=== PATIENT | female | born 1955 | race Caucasian/White ===

== ENCOUNTER → 2018-01-18 | Outpatient (CLI) | payer OTHER ==
[2018-01-18 13:38] LABS: ALBUMIN 3.6 gm/dl (3.4-5.0); ALKALINE PHOSPHATASE 115 U/L (45-117); ALT/SGPT 18 U/L (12-78); AST/SGOT 15 U/L (15-37); BLOOD UREA NITROGEN 14 mg/dl (7-18); CALCIUM 9.1 mg/dl (8.5-10.1); CARBON DIOXIDE 26 mmol/L (21-32); CHOLESTEROL 214 mg/dl (0-200); GLUCOSE 87 mg/dl (70-99); LDL CHOLESTEROL CALCULATED 122 mg/dl; POTASSIUM 4.1 mmol/L (3.5-5.1); SODIUM 139 mmol/L (136-145); TOTAL PROTEIN 7.4 gm/dl (6.4-8.2)
== END | disposition home or self-care (01) ==
LOC: C.LABPBG 07:58
PROVIDERS: ATTEND Physician Assistant Medical
DX: Z00.00 Encounter for general adult medical examination without abnormal findings (principal)

== ENCOUNTER 2021-02-01 22:14 | Inpatient (IN) ==
[2021-02-01] MEDS ORDERED: SODIUM CHLORIDE 0.9% 1000ML 1,000 ML IV SCH (23:45)
[2021-02-01] MEDS ORDERED: MoRPHine SULFATE 4 MG/ML 1 ML CARP\\VIAL IV PRN (23:46)
[2021-02-01] MEDS ORDERED: KETOROLAC 30 MG/ML VIAL IV STA (23:46)
[2021-02-01] MEDS ORDERED: ONDANSETRON INJ 2 MG/ML 2 ML VIAL IV STA (23:46)
[2021-02-02 00:56] LABS: Alanine Aminotransferase 20 U/L (12-78); Albumin Level 4.1 gm/dl (3.4-5.0); Aspartate Aminotransferase 18 U/L (15-37); BUN Creatinine Ratio 8.5 (10-20); Blood Urea Nitrogen 11 mg/dl (7-18); Calcium 9.3 mg/dl (8.5-10.1); Carbon Dioxide 25 mmol/L (21-32); Chloride 106 mmol/L (98-107); Creatinine Clr Calc Pharmacy 46.1 ml/min; Est GFR (African American) 49.6 ml/min; Est GFR (Non-African American) 42.8 ml/min; Glucose 129 mg/dl (70-99); Lipase 78 U/L (73-393); Magnesium 2.2 mg/dl (1.8-2.4); Potassium 4.1 mmol/L (3.5-5.1); Sodium 135 mmol/L (136-145)
[2021-02-02 01:01] LABS: Alkaline Phosphatase 108 U/L (45-117); Bilirubin,Total 0.5 mg/dl (0.2-1); Globulin 4.1 gm/dl (2.5-4.0); Total Protein 8.2 gm/dl (6.4-8.2); Troponin I < 0.015 ng/ml (0-0.045)
[2021-02-02 01:02] LABS: Basophils # (auto) 0.02 K/uL (0-0.2); Basophils % (auto) 0.1 %; Eosinophils # (auto) 0.01 K/uL (0-0.5); Eosinophils % (auto) 0.1 %; Hematocrit (blood only) 40.5 % (37-47); Hemoglobin 13.1 g/dL (12.0-16.0); Immature Granulocytes # (auto) 0.01 K/uL (0.00-0.02); Immature Granulocytes % (auto) 0.1 %; Lymphocytes # (auto) 1.64 K/uL (1.2-3.4); Lymphocytes % (auto) 11.8 %; Mean Corpuscular Hgb Conc 32.3 g/dL (32-36); Mean Corpuscular Volume 89.8 fL (80-100); Mean Platelet Volume 9.7 fL (7.4-10.4); Monocytes # (auto) 0.62 K/uL (0.11-0.59); Monocytes % (auto) 4.5 %; Neutrophils # (auto) 11.63 K/uL (1.4-6.5); Neutrophils % (auto) 83.4 %; Platelet Count 369 K/uL (130-400); RDW Coefficient of Variation 13.7 % (11.5-14.5); RDW Standard Deviation 45.3 fL (36.4-46.3); Red Blood Count 4.51 M/uL (4.2-5.4); White Blood Count 13.93 K/uL (4.8-10.8)
[2021-02-02] MEDS ORDERED: cefTRIAXone SODIUM 2,000 MG/70 ML BAG IV STA (02:27)
--- NOTE | 2021-02-02 02:44 | Emergency Department Note ---
History of Present Illness General Chief complaint: Flank Pain Stated complaint: PAIN ON L SIDE THINKS SHES PASSING KIDNEY STONE Time Seen by Provider: 02/01/21 23:37 History of Present Illness Maximum Pain Intensity: 5 This is a 65-year-old female presenting to the emergency department for evaluation of left-sided abdominal pain radiating into her left lower abdomen for the past 1 day. The patient states the symptoms began roughly 24 hours ago and initially were a 5/10 that ultimately improved by itself. The patient was able to go to work today, but the symptoms returned this evening. They are much more constant and at worst is rated an 8/10. The patient is nauseated without vomiting. No fevers or chills. No chest pain, chest tightness, shortness of breath. Home Medications Medication Instructions Recorded Confirmed Type albuterol sulfate 90 mcg/actuation 2 puff INHALATION Q4H PRN 05/03/20 02/02/21 History aerosol inhaler ibuprofen 200 mg tablet (Advil) 600 mg PO Q6H PRN 05/03/20 02/02/21 History losartan 25 mg tablet 25 mg PO QAM 05/03/20 02/02/21 History Allergies Allergy/AdvReac Type Severity Reaction Status Date / Time naproxen Allergy Intermediate Hives Verified 02/02/21 00:23 Past Med/Surg History Medical History No chronic diseases present Surgical History No significant past surgical history Social History Smoking Status: Never smoker Hx Alcohol Use: No Hx Substance Use: No Preferred Language: Austrian Communication Ability: Effective 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 Beliefs That Will Affect Care: None Current Living Situation: Alone Feels Safe at Home: Yes Safety Concerns: Feels Safe At This Time Assistive Devices: None Review of Systems A total of 10 systems reviewed and were otherwise negative Physical Exam Vital Signs Vital Signs - 24 hr 02/01/21 22:24 02/02/21 00:21 02/02/21 02:05 Temperature 36.4 C L Temperature Source Temporal Artery Scan Pulse Rate 63 74 Pulse Rate [Apical] 72 78 Pulse Rhythm [Apical] Regular Regular Pulse Strength [Apical] Normal Normal Respiratory Rate 22 18 18 Respiratory Effort / Characteristics Non-Labored Spontaneous Non-Labored Spontaneous Respiratory Depth Shallow Normal Normal Blood Pressure 170/91 H Blood Pressure [Left Arm] 153/76 H 128/64 Blood Pressure Mean 117 Blood Pressure Mean [Left Arm] 101 85 Blood Pressure Position [Left Arm] Lying Lying Pulse Oximetry 100 94 Oxygen Delivery Method Room Air Room Air Room Air Sepsis Recent Fever Within 48 Hours No Sepsis New/Unexplained Change in Mental Status No Sepsis Action Taken by Nursing No Action Required VITALS: Vitals are noted on the nurse's note and reviewed by myself. Vital signs stable. GENERAL: Well-developed, well-nourished, white female who appears moderately uncomfortable. She is with dry heaving on examination. NECK: Supple without nuchal rigidity. No lymphadenopathy. No thyromegaly. Cervical spine is nontender. HEART: Regular rate and rhythm without murmurs gallops or rubs. LUNGS: Clear to auscultation bilaterally without wheezes, rales or rhonchi. No retractions or accessory muscle use. ABDOMEN: Positive normal bowel sounds x 4. Soft, nontender, without masses or organomegaly. No guarding or rebound tenderness. MUSCULOSKELETAL: No muscle atrophy, erythema, or edema noted. Full range of m otion in all extremities. NEURO: Patient was alert and oriented to person place and time. CN II through XII grossly intact. Course Administered Medications Discontinued Medications Sodium Chloride (Nss 1000ml) 1,000 mls @ 999 mls/hr IV .Q1H1M ORIANA Stop: 02/02/21 00:45 Last Infusion: 02/02/21 01:24 Dose: 0 mls/hr Documented by: [id number] Admin: 02/02/21 00:14 Dose: 999 mls/hr Documented by: [id number] Ceftriaxone Sodium (Rocephin) 2,000 mg in 70 mls @ 140 mls/hr IV NOW STA Stop: 02/02/21 02:56 Last Infusion: 02/02/21 03:18 Dose: 0 mls/hr Documented by: [id number] Admin: 02/02/21 02:36 Dose: 140 mls/hr Documented by: [id number] Ketorolac Tromethamine (Ketorolac 30 Mg/Ml Vial) 30 mg IV NOW STA Stop: 02/01/21 23:47 Last Admin: 02/02/21 00:01 Dose: 30 mg Documented by: [id number] Morphine Sulfate (Morphine Sulfate 4 Mg/Ml 1 Ml Carp\Vial) 4 mg IV Q15M PRN PRN Reason: Pain Stop: 02/15/21 23:45 Last Admin: 02/02/21 02:36 Dose: 4 mg Documented by: [id number] Ondansetron HCl (Ondansetron Inj 2 Mg/Ml 2 Ml Vial) 4 mg IV NOW STA Stop: 02/01/21 23:47 Last Admin: 02/02/21 00:01 Dose: 4 mg Documented by: [id number] Medical Decision Making Differential Diagnosis Differential diagnosis: Etiologies such as shingles, pyelonephritis/UTI, renal colic, appendicitis, diverticulitis, mesenteric ischemia, torsion, aortic pathology, infections, inflammatory bowel disease, bowel obstruction, PUD, biliary pathology, as well as others were entertained. Laboratory Data Result diagrams: 02/01/21 23:52 02/01/21 23:52 Lab Results 02/01/21 02/01/21 02/02/21 Range/Units 23:52 23:52 02:30 WBC 13.93 H (4.8-10.8) K/uL RBC 4.51 (4.2-5.4) M/uL Hgb 13.1 (12.0-16.0) g/dL Hct 40.5 (37-47) % MCV 89.8 (80-100) fL MCH 29.0 (25-34) pg MCHC 32.3 (32-36) g/dL RDW Std Deviation 45.3 (36.4-46.3) fL RDW Coeff of Dalila 13.7 (11.5-14.5) % Plt Count 369 (130-400) K/uL MPV 9.7 (7.4-10.4) fL Immature Gran % (Auto) 0.1 % Neut % (Auto) 83.4 % Lymph % (Auto) 11.8 % Barrow % (Auto) 4.5 % Eos % (Auto) 0.1 % Baso % (Auto) 0.1 % Neut # (Auto) 11.63 H (1.4-6.5) K/uL Lymph # (Auto) 1.64 (1.2-3.4) K/uL Barrow # (Auto) 0.62 H (0.11-0.59) K/uL Eos # (Auto) 0.01 (0-0.5) K/uL Baso # (Auto) 0.02 (0-0.2) K/uL Immature Gran # (Auto) 0.01 (0.00-0.02) K/uL Sodium 135 L (136-145) mmol/L Potassium 4.1 (3.5-5.1) mmol/L Chloride 106 (98-107) mmol/L Carbon Dioxide 25 (21-32) mmol/L Anion Gap 4.0 (3-11) BUN 11 (7-18) mg/dl Creatinine 1.32 H (0.6-1.2) mg/dl Est Cr Clr Drug Dosing 46.1 ml/min Est GFR ( Amer) 49.6 ml/min Est GFR (Non-Af Amer) 42.8 ml/min BUN/Creatinine Ratio 8.5 L (10-20) Glucose 129 H (70-99) mg/dl Calcium 9.3 (8.5-10.1) mg/dl Magnesium 2.2 (1.8-2.4) mg/dl Total Bilirubin 0.5 (0.2-1) mg/dl AST 18 (15-37) U/L ALT 20 (12-78) U/L Alkaline Phosphatase 108 (45-117) U/L Troponin I < 0.015 (0-0.045) ng/ml Total Protein 8.2 (6.4-8.2) gm/dl Albumin 4.1 (3.4-5.0) gm/dl Globulin 4.1 H (2.5-4.0) gm/dl Albumin/Globulin Ratio 1.0 (0.9-2) Lipase 78 (73-393) U/L Urine Color Yellow Urine Appearance Clear (Clear) Urine pH 5.5 (4.5-7.5) Ur Specific Barnhart 1.019 (1.000-1.030) Urine Protein Negative (Negative) Urine Glucose (UA) Negative (Negative) Urine Ketones 1+ H (Negative) Urine Blood 3+ H (Negative) Urine Nitrite Negative (Negative) Urine Bilirubin Negative (Negative) Urine Urobilinogen Negative (Negative) Ur Leukocyte Esterase 2+ H (Negative) Urine WBC (Auto) 10-30 H (0-5) /hpf Urine RBC (Auto) >30 H (0-4) /hpf U Hyaline Cast (Auto) 1-5 (0-5) /lpf U Epithel Cells (Auto) >30 H (0-5) /lpf Urine Bacteria (Auto) Negative (Negative) COVID-19 Eval Order SARS-CoV-2 (PCR) (Negative) 02/02/21 02/02/21 Range/Units 02:41 02:41 WBC (4.8-10.8) K/uL RBC (4.2-5.4) M/uL Hgb (12.0-16.0) g/dL Hct (37-47) % MCV (80-100) fL MCH (25-34) pg MCHC (32-36) g/dL RDW Std Deviation (36.4-46.3) fL RDW Coeff of Dalila (11.5-14.5) % Plt Count (130-400) K/uL MPV (7.4-10.4) fL Immature Gran % (Auto) % Neut % (Auto) % Lymph % (Auto) % Barrow % (Auto) % Eos % (Auto) % Baso % (Auto) % Neut # (Auto) (1.4-6.5) K/uL Lymph # (Auto) (1.2-3.4) K/uL Barrow # (Auto) (0.11-0.59) K/uL Eos # (Auto) (0-0.5) K/uL Baso # (Auto) (0-0.2) K/uL Immature Gran # (Auto) (0.00-0.02) K/uL Sodium (136-145) mmol/L Potassium (3.5-5.1) mmol/L Chloride (98-107) mmol/L Carbon Dioxide (21-32) mmol/L Anion Gap (3-11) BUN (7-18) mg/dl Creatinine (0.6-1.2) mg/dl Est Cr Clr Drug Dosing ml/min Est GFR ( Amer) ml/min Est GFR (Non-Af Amer) ml/min BUN/Creatinine Ratio (10-20) Glucose (70-99) mg/dl Calcium (8.5-10.1) mg/dl Magnesium (1.8-2.4) mg/dl Total Bilirubin (0.2-1) mg/dl AST (15-37) U/L ALT (12-78) U/L Alkaline Phosphatase (45-117) U/L Troponin I (0-0.045) ng/ml Total Protein (6.4-8.2) gm/dl Albumin (3.4-5.0) gm/dl Globulin (2.5-4.0) gm/dl Albumin/Globulin Ratio (0.9-2) Lipase (73-393) U/L Urine Color Urine Appearance (Clear) Urine pH (4.5-7.5) Ur Specific Barnhart (1.000-1.030) Urine Protein (Negative) Urine Glucose (UA) (Negative) Urine Ketones (Negative) Urine Blood (Negative) Urine Nitrite (Negative) Urine Bilirubin (Negative) Urine Urobilinogen (Negative) Ur Leukocyte Esterase (Negative) Urine WBC (Auto) (0-5) /hpf Urine RBC (Auto) (0-4) /hpf U Hyaline Cast (Auto) (0-5) /lpf U Epithel Cells (Auto) (0-5) /lpf Urine Bacteria (Auto) (Negative) COVID-19 Eval Order Covid19 at [facility] SARS-CoV-2 (PCR) NEGATIVE (Negative) Imaging Data Radiologist's Impression: Preliminary Findings Only See Final Report For Complete Findings CT ABDOMEN & PELVIS Without Contrast: There is an obstructing 5-6 mm stone within the left UPJ resulting in mild left hydronephrosis. There is associated moderate pararenal fat stranding. Additional nonobstructing left renal calculi. No right nephrolithiasis or hydronephrosis. Small hiatal hernia. Mild atelectasis in the lung bases. Unremarkable liver, gallbladder, spleen, and pancreas. Mild diverticulosis of the sigmoid colon without evidence of acute diverticuliti s. Unremarkable appendix. Radiologist: Tana Freeman M.D. ECG Data Attestation: I personally reviewed and interpreted this ECG as follows: Additional Comments: Normal sinus rhythm @[address] elevation Nonspecific T wave abnormality Abnormal ECG No previous ECGs available MDM Narrative Physical exam and history were performed. Nursing notes, EMR, and Medication List were personally reviewed. Patient appears to have left-sided pain bringing her to the emergency department. The patient is quite nauseated on presentation and appears uncomfortable. IV access was established and labs were obtained. She was hydra smiley with normal saline and given IV morphine, IV Toradol, and IV Zofran for comfort. The patient was sent to CT scan for further evaluation of her symptoms. An order was placed for continuous cardiac monitoring. The monitor shows a rate of 64 with normal sinus rhythm. The patient's blood work is as above and was reviewed. She does have an elevated white blood cell count of almost 14,000. She does not have a significant anemia or gross electrolyte imbalance. Creatinine is 1.32. Glucose is 129. Troponin x1 is negative. Lipase and transaminases are not diagnostic. Urine is with blood, esterase, and white blood cells. COVID-[address] scan was reviewed by myself and radiology and does show a 5 to 6 mm proximal obstructing stone with hydronephritis and stranding. Out of concern for infection the patient was given IV Rocephin. Overall the patient does not appear well for discharge home. She seems to have an obstructing stone and concerning findings for infection. The patient does feel improved after hydration and medication here in the ER. The case was discussed with the on-call hospitalist team for further evaluation. Please see their dictation for further patient course, plan, and disposition. The chart was completed utilizing [employer] Speech Voice Recognition Software. Grammatical errors, random word insertions, pronoun errors, and incomplete sente nces are an occasional consequence of this system due to software limitations, ambient noise, and hardware issues. Any formal questions or concerns about the content, text, or information contained within the body of this dictation should be directly addressed to the provider for clarification. . Impression & Plan Left ureteral calculus, Hydronephrosis with renal calculous obstruction Discharge Plan Visit Data Chief Complaint: Flank Pain Stated Complaint: PAIN ON L SIDE THINKS SHES PASSING KIDNEY STONE ED Provider: Paul Armijo ED Midlevel Provider: Matthew Carpenter Discharge Problem: Left ureteral calculus, Hydronephrosis with renal calculous obstruction Patient Disposition: Admitted As Inpatient Discharge Instructions Interventions: ED Discharge Assessment Last Done: 02/02/21 04:42
[2021-02-02 02:54] LABS: Appearance Urine Clear (Clear); Bacteria Urine Automated Negative (Negative); Bilirubin Urine Negative (Negative); Blood Urine 3+ (Negative); Color Urine Yellow; Epithelial Cell Urine Auto >30 /lpf (0-5); Glucose Urine UA Negative (Negative); Ketones Urine 1+ (Negative); Leukocyte Esterase Urine 2+ (Negative); Nitrite Urine Negative (Negative); Protein Urine Negative (Negative); RBC Urine Automated >30 /hpf (0-4); Specific Gravity Urine 1.019 (1.000-1.030); Urobilinogen Urine Negative (Negative); pH Urine 5.5 (4.5-7.5)
--- NOTE | 2021-02-02 04:37 | History and Physical Report ---
DATE OF ADMISSION: 02/01/2021. CHIEF COMPLAINT: Left flank pain. HISTORY OF PRESENT ILLNESS: A 65-year-old female with past medical history significant for intermittent asthma, allergic rhinitis, venous insufficiency, hypertension, adjustment disorder with anxious mood, comes with left flank pain. The patient states she had left flank pain the other day at night for a couple of hours. It resolved and she went to work when she came back home in the evening, again around 11:00 p.m., she had severe pain in the left flank region with nausea, vomiting, which prompted her to come to the ER. Denies any hematuria and denies any fever or chills. No burning micturition. She also has some lower abdominal discomfort. When she came, the pain was 10/10 in severity, currently after pain medication pain is about 3/10 in severity. Denies any chest pain, no shortness of breath, no cough, no fever, no headache, no blurred vision, no earache, no runny nose, no sore throat, no swelling in the legs, no rash. Currently, resting comfortably and hemodynamically stable. ALLERGIES: LISINOPRIL, DYAZIDE, NAPROXEN. PAST MEDICAL HISTORY: As mentioned above. PAST SURGICAL HISTORY: Tonsillectomy and adenoidectomy. MEDICATIONS: The patient is on albuterol 2 puffs inhalation q. 4 hours p.r.n., losartan 25 mg p.o. a.m., and Advil p.r.n. FAMILY HISTORY: Significant for father has hypertension; mother has hypertension; brother has lymphoma. SOCIAL HISTORY: Lives alone. No smoking. Alcohol 4 drinks per month. No drug use. REVIEW OF SYSTEMS: As per HPI. Rest of the review of systems negative. PHYSICAL EXAMINATION: GENERAL: The patient is of moderate build, not in acute distress. VITAL SIGNS: Temperature 36.4, pulse 78, respiratory rate 18, blood pressure 128/64, oxygen 94% on room air. HEENT: Pupils equal, round and reactive to light. Oral mucosa moist. NECK: No JVD. No neck masses. CARDIOVASCULAR: S1 and S2 heard. Regular rate and rhythm. No murmur, no gallop. RESPIRATORY SYSTEM: Normal AP diameter. No accessory muscle use. No wheezing, no crackles. ABDOMEN: Soft, bowel sounds present. Left CVA tenderness present. No guarding, no rigidity, no distention. CENTRAL NERVOUS SYSTEM: Cranial nerves II-XII grossly intact, nonfocal. EXTREMITIES: No edema, no erythema. LABORATORY DATA: WBC 13.9, hemoglobin 13.1, hematocrit 40.5, platelets 369. Sodium 135, potassium 4.1, chloride 106, bicarbonate 25, BUN 11, creatinine 1.31, serum glucose 129, calcium 9.3, magnesium 2.2, total bilirubin 0.5, AST of 18, ALT 20, alkaline phosphatase 108. Troponin I less than 0.015. Lipase 78. Urinalysis, +3 blood, +2 leukocyte esterase. SARS-CoV-2 PCR pending. IMAGING DATA: CT of abdomen and pelvis, preliminary report shows 5-6 mm stone within the left UPJ junction resulting in mild left hydronephrosis, associated moderate pararenal fat stranding. EKG: Normal sinus rhythm at a rate of 63, nonspecific ST-T wave abnormalities. ASSESSMENT AND PLAN: This is a 65-year-old female who presents with left flank pain and found to have renal colic. 1. Left renal colic: A 5-6 mm left UP junction stone mild hydronephrosis. No history of kidney stones. ER empirically started on Rocephin for possible urinary tract infection. Will follow the cultures. Continue the Rocephin, IV fluids, n.p.o., IV antiemetics. Consult urology in a.m. for further recommendation. Monitor in the medical floor. 2. History of hypertension: Continue losartan. 3. History of intermittent asthma: On albuterol p.r.n. Currently stable. 4. Deep venous thrombosis prophylaxis: Sequential compression devices for now. DISPOSITION: Admit to medical floor. Expect to discharge home and follow with family doctor. Job ID: [id number] [facility]
[2021-02-02] MEDS ORDERED: POLYETHYLENE (MIRALAX) 17 GM PACK PO PRN (05:11)
[2021-02-02] MEDS ORDERED: MoRPHine SULFATE 4 MG/ML 1 ML CARP\\VIAL IV PRN (05:11)
[2021-02-02] MEDS ORDERED: ALBUTEROL HFA 8 GM INHALER INH PRN (05:11)
[2021-02-02] MEDS ORDERED: ONDANSETRON INJ 2 MG/ML 2 ML VIAL IV PRN ×2 (05:11→12:47)
[2021-02-02] MEDS: SODIUM CHLORIDE 0.9% 1000ML 1,000 ML IV SCH ×3 (06:09→22:23)
--- NOTE | 2021-02-02 07:10 | Urology Consultation ---
Date of Consultation February 02, 2021 Assessment & Plan (1) Left ureteral calculus: (2) Left flank pain: 65 year-old female patient admitted with intractable left-sided flank pain secondary to obstructing 6 mm left UPJ calculus, also with question of 9 mm distal right calculus. -Patient afebrile. -Labs reviewed - white count mildly elevated, creatinine elevated at 1.48. -Urine culture pending, await final. -Continue supportive care, pain control, and empiric antibiotic therapy. -Strain all urine. -Keep NPO. Findings reviewed with Dr. Sanchez. Given her intractable left flank pain in the context of an obstructing 6 mm left UPJ calculus with question of 9 mm distal right ureteral calculus, will proceed with OR for cystoscopy, bilateral retrograde pyelogram, possible bilateral ureteroscopy, laser lithotripsy/stone treatment and ureteral stent insertion depending on findings. Risks and benefits of procedure discussed and to be reviewed with patient by Dr. Sanchez. OR notified. Preoperative CXR ordered. EKG in chart. COVID-19 negative. Patient covered with routine IV Ceftriaxone. History of Present Illness Reason for Consultation: Left UPJ calculus Requesting Physician: Dr. Quijano Attending Physician: Kellee Pepper MD History of Present Illness 65 year-old female patient, with past medical history significant for intermittent asthma, allergic rhinitis, venous insufficiency, hypertension, adjustment disorder with anxious mood, presented to the emergency room with left-sided abdominal/flank pain with associated nausea/vomiting that began Monday. Denied fevers or chills. She was found to have obstructing left UPJ calculus and admitted to medicine service for additional evaluation and treatment. Urology consulted for left UPJ calculus. Patient denies past history of kidney stones. Has not followed with urology in the past. No known family history of stones. Chart review: Afebrile Labs 8/9 - Wbc 13.93 Hgb 13.1 Creatinine 1.32 (baseline 0.8-0.9) Labs this AM - Wbc 11.38 Hgb 11.7 Creatinine 1.48 Urinalysis on admission +2 leukocytes, 10-30 wbc, >30 rbc, negative bacteria, negative nitrates. Urine culture pending. Patient on empiric IV Ceftriaxone. Imaging: CT abd/pelvis without contrast - IMPRESSION: 1. There is a 6 mm obstructing calculus in the left proximal ureter. This causes moderate to severe left hydroureteronephrosis. 2. Additional nonobstructing left or a calculi as above. 3. There is a 9 mm calculus along the course of the distal right ureter located just above the right vesicoureteral junction. Although this appears to be located within the ureter, there is no associated upstream hydronephrosis and a large phlebolith displacing the ureter could appear similar. Follow-up with urology is recommended.. 4. Mild colonic diverticulosis without CT evidence of acute diverticulitis. 5. Additional findings as above. Patient seen and examined at bedside. She is awake, alert, non-toxic in appearance. Reports left flank pain that is currently tolerable, rating pain 1 out of 10. Did require IV pain and nausea medication early this AM. Denies right flank pain. She states she is no longer experiencing nausea or vomiting. Denies fevers or chills. Denies dysuria or hematuria. Does note baseline urinary urgency/frequency. Feels she empties her bladder well. No known stone passage since admission. Has not ate or drank anything since midnight. Denies additional urologic concerns today. Allergies Allergy/AdvReac Type Severity Reaction Status Date / Time naproxen Allergy Intermediate Hives Verified 02/02/21 00:23 Home Medications Medication Instructions Recorded Confirmed Type albuterol sulfate 90 mcg/actuation 2 puff INHALATION Q4H PRN 05/03/20 02/02/21 History aerosol inhaler ibuprofen 200 mg tablet (Advil) 600 mg PO Q6H PRN 05/03/20 02/02/21 History losartan 25 mg tablet 25 mg PO QAM 05/03/20 02/02/21 History Patient History Medical History No chronic diseases present Surgical History No significant past surgical history Social History Smoking Status: Never smoker Hx Alcohol Use: No Hx Substance Use: No Preferred Language: Ukrainian Communication Ability: Effective Box Bender Required: No Beliefs That Will Affect Care: None Current Living Situation: Alone Feels Safe at Home: Yes Safety Concerns: Feels Safe At This Time Assistive Devices: None Review of Systems Constitutional: as per Subjective / HPI; no fever and no chills Eyes: no problem reported Ear, Nose, Mouth, Throat: no dizziness Respiratory: no cough and no dyspnea Cardiovascular: no chest pain and no edema Gastrointestinal: as per Subjective / HPI Musculoskeletal: as per Subjective / HPI Neurologic: no dizziness Endocrine: no fatigue Hematologic / Lymphatic: no easy bleeding and no easy bruising Physical Exam Constitutional: well developed and well nourished; no acute distress and not ill appearing ENMT: Ears: no external ear abnormality Nose: no external nose abnormality Neck: normal visual inspection and trachea midline Respiratory: normal respiratory effort and able to speak in complete sentences; no respiratory distress and no audible wheezes Cardiovascular: Extremities: no calf tenderness and no edema Gastrointestinal (Abdomen): Inspection/Auscultation: abdomen normal to inspection; abdomen not distended Percussion/Palpation: abdomen soft; abdomen nontender and no guarding Musculoskeletal: Moves all extremities without difficulty. Skin: No visible rashes, lesions, or wounds noted. Neurologic: moves all extremities and awake Psychiatric: Orientation: alert, oriented x 3 and cooperative Affect: euthymic affect Genitourinary: no CVA tenderness Results & Data ([facility]) Vital Signs (Past 12 Hours) Vital Signs Temp Pulse Pulse Pulse Resp BP BP 02/02/21 05:10 36.5 C 64 16 161/78 H 02/02/21 04:31 64 16 112/59 L 02/02/21 02:05 78 18 128/64 02/02/21 00:21 74 72 18 153/76 H 02/01/21 22:24 36.4 C L 63 22 170/91 H Pulse Ox 02/02/21 05:10 99 02/02/21 04:31 95 02/02/21 02:05 94 02/02/21 00:21 02/01/21 22:24 100 PG Care Time/CCT Total # of Minutes Spent Total Time Spent with Patient: Total time spent is greater than 50% in coordination of care (as documented) at patient's floor/unit and/or counseling patient: Coding Level of Care Code 44597 Inpt Consult Level 4 Diagnoses Left ureteral calculus N20.1 Left flank pain R10.9
--- NOTE | 2021-02-02 08:24 | CT Scan Report ---
CT SCAN OF THE ABDOMEN AND PELVIS WITHOUT IV CONTRAST CLINICAL HISTORY: Left flank pain. COMPARISON STUDY: No priors. TECHNIQUE: CT scan of the abdomen and pelvis is performed from the lung bases to the proximal femora. Images are reviewed in the axial, sagittal, and coronal planes. IV contrast was not administered for this examination. A dose lowering technique was utilized adhering to the principles of ALARA. CT DOSE: 1095.80 mGy.cm FINDINGS: Lung bases: The heart is normal in size and without pericardial effusion. The lung bases are clear. T here is a small hiatal hernia. Liver: The unenhanced liver is normal in size, contour, and attenuation. There is no intrahepatic annamarie iary ductal dilatation. Gallbladder: Unremarkable. Spleen: Normal in size and attenuation. Pancreas: Unremarkable. Adrenal glands: Unremarkable. Kidneys: The unenhanced kidneys demonstrate cortical atrophy. There is a 6 mm obstructing calculus in the left proximal ureter seen on image #[id number] at the level of L3-L4. This causes moderate to severe le ft hydroureteronephrosis. There is associated left-sided perinephric stranding and fluid. There are 2 additional nonobstructing left renal calculi which measure up to 6 mm. No right renal calculi are cl early identified. There is a 9 mm calculus along the course of the distal right ureter seen on image #[id number] located just above the vesicoureteral junction. There is no upstream ureteral dilatation or righ t-sided hydronephrosis. There is no evidence of contour deforming renal mass lesion. A circumaortic l eft renal vein is incidentally noted. Abdominal vasculature: The abdominal aorta is normal in course and caliber. Bowel: There is mild colonic diverticulosis without CT evidence of acute diverticulitis. Ccmn-mf-mgmn rate fecal retention is seen throughout the colon. The appendix is well-visualized and normal. Peritoneum: There is no intraperitoneal free air or abdominal ascites. Lymphadenopathy: None. Pelvic viscera: The bladder is decompressed and grossly unremarkable. The uterus and adnexa are wes l as visualized. Skeletal structures: The skeletal structures are osteopenic. Advanced disc space narrowing is seen at L5-S1. No lytic or blastic lesions are seen. IMPRESSION: 1. There is a 6 mm obstructing calculus in the left proximal ureter. This causes moderate to severe l eft hydroureteronephrosis. 2. Additional nonobstructing left or a calculi as above. 3. There is a 9 mm calculus along the course of the distal right ureter located just above the right vesicoureteral junction. Although this appears to be located within the ureter, there is no associate d upstream hydronephrosis and a large phlebolith displacing the ureter could appear similar. Follow-u p with urology is recommended.. 4. Mild colonic diverticulosis without CT evidence of acute diverticulitis. 5. Additional findings as above. ACT 112: Negative or not required by law. Electronically signed by: Rory Garcia M.D. 02/02/2021 8:23 AM
[2021-02-02 08:56] LABS: Basophils # (auto) 0.03 K/uL (0-0.2); Basophils % (auto) 0.3 %; Eosinophils # (auto) 0.02 K/uL (0-0.5); Eosinophils % (auto) 0.2 %; Hematocrit (blood only) 36.4 % (37-47); Hemoglobin 11.7 g/dL (12.0-16.0); Immature Granulocytes # (auto) 0.02 K/uL (0.00-0.02); Immature Granulocytes % (auto) 0.2 %; Lymphocytes # (auto) 2.27 K/uL (1.2-3.4); Lymphocytes % (auto) 19.9 %; Mean Corpuscular Hemoglobin 28.9 pg (25-34); Mean Corpuscular Hgb Conc 32.1 g/dL (32-36); Mean Corpuscular Volume 89.9 fL (80-100); Mean Platelet Volume 9.2 fL (7.4-10.4); Monocytes # (auto) 0.78 K/uL (0.11-0.59); Monocytes % (auto) 6.9 %; Neutrophils # (auto) 8.26 K/uL (1.4-6.5); Neutrophils % (auto) 72.5 %; Platelet Count 305 K/uL (130-400); RDW Coefficient of Variation 13.7 % (11.5-14.5); RDW Standard Deviation 44.8 fL (36.4-46.3); Red Blood Count 4.05 M/uL (4.2-5.4); White Blood Count 11.38 K/uL (4.8-10.8)
[2021-02-02 09:17] LABS: BUN Creatinine Ratio 9.4 (10-20); Calcium 8.3 mg/dl (8.5-10.1); Creatinine Clr Calc Pharmacy 41.2 ml/min; Est GFR (African American) 43.2 ml/min; Est GFR (Non-African American) 37.3 ml/min; Potassium 4.4 mmol/L (3.5-5.1)
[2021-02-02] MEDS: LOSARTAN POTASSIUM 25 MG TAB PO SCH (09:19)
--- NOTE | 2021-02-02 09:49 | Hospitalist Progress Note ---
Date of Service February 02, 2021 Assessment & Plan Admission and Anticipated Discharge Date Admission Date: February 02, 2021 Subjective IMELDA cr 1.3. getting fluids. will follow labs. if worsening will hold losartan. Results & Data Results & Data ([facility]) Vital Signs (Past 12 Hours) Vital Signs Temp Pulse Pulse Pulse Resp BP BP 02/02/21 07:49 36.9 C 64 16 114/68 02/02/21 05:10 36.5 C 64 16 161/78 H 02/02/21 04:31 64 16 112/59 L 02/02/21 02:05 78 18 128/64 02/02/21 00:21 74 72 18 153/76 H 02/01/21 22:24 36.4 C L 63 22 170/91 H Pulse Ox 02/02/21 07:49 96 02/02/21 05:10 99 02/02/21 04:31 95 02/02/21 02:05 94 02/02/21 00:21 02/01/21 22:24 100
--- NOTE | 2021-02-02 11:15 | Communication Note ---
Date of Service: February 02, 2021 Patient seen and examined this morning. History as detailed by Dr. Quijano in H&P from this morning, notable for 65-year-old female with past medical history significant for intermittent asthma, allergic rhinitis, venous insufficiency, hypertension, adjustment disorder with anxious mood, comes with left flank pain. Patient found to have 6 mm obstructing calculus in left proximal ureter causing moderate to severe left hydroureteronephrosis on CT. Also has a 9 mm distal right ureteric calculus above right vesicoureteral junction. Patient currently reports pain is controlled. Denies any symptoms. Physical exam notable did not reveal CVA tenderness at this time Lab work notable for WBC of 11, creatinine of 1.48. UA : 2+ leukocyte esterase 10-30 WBC. -Left obstructive ureteric calculus with left hydroureteronephrosis. Continue straining urine. Urology on board. Planning possible procedure. Continue IV antibiotics for now follow-up urine cultures Agree with other plans as detailed by Dr. Quijano this morning
--- NOTE | 2021-02-02 11:32 | XRay Report ---
XR chest 2V PA/lateral HISTORY: Preoperative evaluation. COMPARISON: None. FINDINGS: The lungs are clear. Cardiac silhouette is normal in size. No pleural effusions. No pneumot horax. IMPRESSION: No acute process. ACT 112: Negative or not required by law. Electronically signed by: Stephen Julio M.D. 02/02/2021 11:31 AM
--- NOTE | 2021-02-02 11:43 | Anesthesiology Consultation ---
Date of Service February 02, 2021 Assessment & Plan (1) Encounter for pre-operative examination: Chart Review Chart Review: Acceptable Risk for Surgery History Surgery Operation Date: 02/02/21 09:25 Proposed Procedures p Cystoscopy, Bilateral Retrograde Pyelogram, Possible Bilateral Ureteroscopy, Stone Treatment, Bilateral Stent Insertion - Xu Sanchez MD Height/Weight Height: 5 ft 4 in Weight: 85.7 kg Allergies Allergy/AdvReac Type Severity Reaction Status Date / Time naproxen Allergy Intermediate Hives Verified 02/02/21 00:23 Medications Home Medications Medication Instructions Recorded Confirmed Last Taken albuterol sulfate 90 mcg/actuation 2 puff INHALATION Q4H PRN 05/03/20 02/02/21 Unknown aerosol inhaler ibuprofen 200 mg tablet (Advil) 600 mg PO Q6H PRN 05/03/20 02/02/21 05/03/20 600 mg losartan 25 mg tablet 25 mg PO QAM 05/03/20 02/02/21 02/01/21 Active Medications Generic Name Dose Route Start Last Admin Trade Name Freq PRN Reason Stop Dose Admin Sodium Chloride 1,000 mls @ 125 mls/hr 02/02/21 05:11 02/02/21 06:09 Nss 1000ml IV 03/04/21 05:10 125 mls/hr .Q8H ORIANA Administration Losartan Potassium 25 mg 02/02/21 09:00 02/02/21 09:19 Losartan Potassium 25 Mg Tab PO 03/04/21 08:59 25 mg QAM ORIANA Administration Morphine Sulfate 3 mg 02/02/21 05:11 02/02/21 08:54 Morphine Sulfate 4 Mg/Ml 1 Ml Carp\Vial IV 02/16/21 05:10 3 mg Q3H PRN Administration Pain Past Medical History Medical History No chronic diseases present Past Surgical History Surgical History No significant past surgical history Social History Smoking Status: Never smoker Hx Alcohol Use: No Hx Substance Use: No Physical Exam Vital Signs Last Vital Signs Temp 36.9 C 02/02/21 07:49 Pulse 64 02/02/21 07:49 Resp 16 02/02/21 07:49 BP 114/68 02/02/21 07:49 Pulse Ox 96 02/02/21 07:49 Testing Laboratory Results 02/02/21 08:32 02/02/21 08:32 Urine Color Yellow 02/02/21 02:30 Urine Appearance Clear (Clear) 02/02/21 02:30 Urine pH 5.5 (4.5-7.5) 02/02/21 02:30 Ur Specific [place] 1.019 (1.000-1.030) 02/02/21 02:30 Urine Protein Negative (Negative) 02/02/21 02:30 Urine Glucose (UA) Negative (Negative) 02/02/21 02:30 Urine Ketones 1+ (Negative) H 02/02/21 02:30 Urine Nitrite Negative (Negative) 02/02/21 02:30 Ur Leukocyte Esterase 2+ (Negative) H 02/02/21 02:30 Urine WBC (Auto) 10-30 /hpf (0-5) H 02/02/21 02:30 Urine RBC (Auto) >30 /hpf (0-4) H 02/02/21 02:30 U Hyaline Cast (Auto) 1-5 /lpf (0-5) 02/02/21 02:30 U Epithel Cells (Auto) >30 /lpf (0-5) H 02/02/21 02:30 Urine Bacteria (Auto) Negative (Negative) 02/02/21 02:30 Electrocardiogram Date: 02/01/21 Findings: + NSR @ (63) and + NSST changes Chest X-Ray Date: 02/02/21 Findings: + NAD
[2021-02-02] MEDS ORDERED: ONDANSETRON INJ 2 MG/ML 2 ML VIAL ONE (11:45)
[2021-02-02] MEDS ORDERED: PROPOFOL IV EMULSION 10 MG/ML 20 ML VIAL IV ONE (11:45)
[2021-02-02] MEDS ORDERED: PHENYLEPHRINE 100MCG/ML 5ML SYR ONE (11:45)
[2021-02-02] MEDS ORDERED: ePHEDrine sulfate 50 MG/ML SYR ONE (11:45)
[2021-02-02] MEDS ORDERED: MIDAZOLAM HCL 1 MG/ML 2ML VIAL ONE (11:45)
[2021-02-02] MEDS ORDERED: LIDOCAINE 2% 2 ML VIAL/AMP(20MG/ML) INFIL ONE (11:45)
[2021-02-02] MEDS ORDERED: fentaNYL citrate 100 MCG/2 ML VIAL ONE (11:45)
[2021-02-02] MEDS ORDERED: fentaNYL citrate 100 MCG/2 ML VIAL IV PRN (12:47)
[2021-02-02] MEDS ORDERED: LABETALOL HCL IV 5 MG/ML 20ML IV PRN (12:47)
[2021-02-02] MEDS ORDERED: ATROPINE SULFATE 0.1 MG/ML 10ML SYR IV PRN (12:47)
[2021-02-02] MEDS ORDERED: PROMETHAZINE HCL 12.5 MG in SODIUM CHLORIDE 0.9% 50 ML IV PRN (12:47)
[2021-02-02] MEDS ORDERED: DIATRIZOATE MEGLUMINE 30% 100ML VIAL INSTIL ONE (14:51)
--- NOTE | 2021-02-02 15:03 | Anesthesiology Progress Note ---
Date of Service February 02, 2021 Anesthesia Post Procedure Vital Signs Vital Signs: Temp Pulse Pulse Pulse Resp BP BP 02/02/21 12:43 36.6 C 58 L 18 145/88 H 02/02/21 07:49 36.9 C 64 16 114/68 02/02/21 05:10 36.5 C 64 16 161/78 H 02/02/21 04:31 64 16 112/59 L 02/02/21 02:05 78 18 128/64 02/02/21 00:21 74 72 18 153/76 H 02/01/21 22:24 36.4 C L 63 22 170/91 H Pulse Ox 02/02/21 12:43 100 02/02/21 07:49 96 02/02/21 05:10 99 02/02/21 04:31 95 02/02/21 02:05 94 02/02/21 00:21 02/01/21 22:24 100 Pain Intensity Left Flank: Pain Intensity: 1 Transfer of Care Handoff Completed per policy Notes Mental Status: alert / awake / arousable Patient Amnestic to Procedure: Yes Nausea / Vomiting: adequately controlled Pain: adequately controlled Airway Patency, RR, SpO2: stable & adequate BP & HR: stable & adequate Hydration State: stable & adequate Anesthetic Complications: no major complications apparent
--- NOTE | 2021-02-02 15:04 | Operative Report ---
PG Post Operative Report Pre & Post Diagnosis Operation Date: 02/02/21 09:25 Pre-Op Diagnosis: Bilateral Ureteral Stones Post-Op Diagnosis: Bilateral Ureteral Stones I identified the patient and participated in the time-out.: Yes Procedure Operation Date: 02/02/21 09:25 Actual Procedures p Cystoscopy, Bilateral Retrograde Pyelogram, Bilateral Ureteroscopic Laser Lithotripsy with Stone Extraction, Left Stent Placement(Bilateral) - Xu Sanchez MD Surgeon Timothy Sanchez MD Editor Department none Estimated Blood Loss 0 Findings Consistent with Post-Op Diagnosis Specimens Stone for chemical analysis Description of Procedure The patient was identified in the preoperative holding area, appropriate informed consents were reviewed and completed and the patient was transferred to the operative suite. Upon arrival, appropriate antibiotics and anesthesia were administered and the patient was placed in dorsal lithotomy position and prepped and draped in sterile fashion. To begin the case to pass a 22 Kitt[place] cystoscope with 30 degree lens. Inspection revealed a healthy-appearing bladder. I turned my attention first to the right UO. I cannulated the distal ureter with a 5 [place] open-ended catheter. I advanced this catheter met no resistance but under fluoroscopic evaluation I could see it by passing and moving a distal right ureteral calculus. I then withdrew the 5 [place] open-ended catheter back to the UVJ and performed a retrograde pyelogram. Right retrograde pyelogram: Dilation around the distal right ureteral calculus without amaury hydronephrosis. No other filling defects. After the retrograde pyelogram I advanced a wire into the kidney and then withdrew the 5 Kittitian open-ended catheter and the cystoscope. I reentered with a semirigid ureteroscope which I guided into the distal right ureter. I encountered a stone consistent with what was seen on the retrograde. Utilizing a 272 m laser fiber I fragmented the stone and irrigated all stone debris out of the ureter. Of note there was essentially no inflammation of the ureter and I elected to withdraw the wire and observe the right side while I proceeded to treat and evaluate the left side. I then turned my attention to the left UO and cannulated it with 2 sensor wires. Utilizing 1 wire as a safety wire another is working wire advanced a flexible ureteroscope into the kidney. There were 2 stones in the kidney as well as a stone at the UPJ. I was able to fragment all of these in the pieces deemed safe for spontaneous passage. Repeat renoscopy revealed no large retained fragments. Irrigated as much of the debris out of the kidney as possible and then performed a careful exit ureteroscopy confirming a clear ureter. I placed a 6 Kitt[place] by 24 cm double-J ureteral stent on the left with a good curl in the kidney as well as the bladder. A string was left attached to the distal aspect of the stent. The bladder was decompressed and stone debris gathered and passed off the table for analysis. I then concluded the case. She was extubated and taken to the PACU in stable condition. There were no complications. I attest to the content of the Intraoperative Record and any orders documented therein. Any exceptions are noted below.
--- NOTE | 2021-02-02 15:13 | Fluoroscopy Report ---
FL retrograde includes kub CLINICAL HISTORY: Bilateral ureteral stent placement. COMPARISON STUDY: Abdomen and pelvis CT 02/02/2021. FLUOROSCOPY TIME: 38 seconds. FINDINGS: 4 fluoroscopic spot images of the abdomen and pelvis demonstrate retrograde opacification o f the bilateral renal collecting systems with placement of a left ureteral stent. The left ureteral s tent appears in good position. IMPRESSION: Fluoroscopy provided for left ureteral stent placement which appears in good position. ACT 112: Negative or not required by law. Electronically signed by: Stephen Julio M.D. 02/02/2021 3:12 PM
--- NOTE | 2021-02-02 15:25 | Electrocardiogram Report ---
Test Reason : Blood Pressure : / mmHG Vent. Rate : 063 BPM Atrial Rate : 063 BPM P-R Int : 118 ms QRS Dur : 082 ms QT Int : 434 ms P-R-T Axes : 038 012 032 degrees QTc Int : 444 ms Poor data quality, interpretation may be adversely affected Normal sinus rhythm Nonspecific T wave abnormality Abnormal ECG No previous ECGs available Confirmed by Timothy Green ([id number]) on 02/02/2021 3:25:03 PM Referred By: REFERRED SELF Confirmed By:Reza Green
[2021-02-02] MEDS ORDERED: cefTRIAXone SODIUM 2,000 MG in DEXTROSE 5% 50 ML IV SCH (22:00)
[2021-02-02] MEDS: ACETAMINOPHEN 325 MG TAB PO PRN (23:38)
[2021-02-03] MEDS: SODIUM CHLORIDE 0.9% 1000ML 1,000 ML IV SCH ×2 (02:22→15:59)
[2021-02-03 06:42] LABS: Basophils # (auto) 0.02 K/uL (0-0.2); Basophils % (auto) 0.1 %; Eosinophils # (auto) 0.05 K/uL (0-0.5); Eosinophils % (auto) 0.4 %; Hemoglobin 10.3 g/dL (12.0-16.0); Immature Granulocytes # (auto) 0.02 K/uL (0.00-0.02); Immature Granulocytes % (auto) 0.1 %; Lymphocytes # (auto) 2.41 K/uL (1.2-3.4); Lymphocytes % (auto) 17.8 %; Mean Corpuscular Hemoglobin 28.7 pg (25-34); Mean Corpuscular Hgb Conc 31.2 g/dL (32-36); Mean Corpuscular Volume 91.9 fL (80-100); Mean Platelet Volume 8.9 fL (7.4-10.4); Monocytes # (auto) 1.12 K/uL (0.11-0.59); Monocytes % (auto) 8.3 %; Neutrophils # (auto) 9.94 K/uL (1.4-6.5); Neutrophils % (auto) 73.3 %; Platelet Count 280 K/uL (130-400); RDW Coefficient of Variation 13.9 % (11.5-14.5); RDW Standard Deviation 46.5 fL (36.4-46.3); Red Blood Count 3.59 M/uL (4.2-5.4); White Blood Count 13.56 K/uL (4.8-10.8)
[2021-02-03 07:13] LABS: BUN Creatinine Ratio 11.7 (10-20); Calcium 7.9 mg/dl (8.5-10.1); Creatinine Clr Calc Pharmacy 57.5 ml/min; Est GFR (African American) 64.7 ml/min; Est GFR (Non-African American) 55.8 ml/min; Magnesium 2.1 mg/dl (1.8-2.4); Potassium 3.9 mmol/L (3.5-5.1)
--- NOTE | 2021-02-03 07:51 | Urology Progress Note ---
Date of Service February 03, 2021 Assessment & Plan (1) Left ureteral calculus: (2) Left flank pain: (3) Right distal ureteral calculus: Plan: 65 year-old female patient admitted with intractable left-sided flank pain secondary to obstructing 6 mm left UPJ calculus, also found to have 9 mm distal right calculus. -POD #1 cystoscopy, bilateral retrograde pyelogram, bilateral ureteroscopic laser lithotripsy with stone extraction, and left stent placement with Dr. Sanchez. -Clinically progressing as expected. -Patient remains afebrile. -Labs reviewed - white count mildly elevated, creatinine returned to normal. -Urine culture pending. -As she is doing well, okay to discharge home from perspective. -Recommend home with Tamsulosin, pain control, and 3 day course of antibiotic therapy. -Will plan for tethered stent removal in office tomorrow, 02/04. -Expected clinical course reviewed with patient, all questions answered. Thank you for allowing us to participate in the acute care of Mrs. Carranza. Please reconsult us with additional questions, concerns or changes in patient status. Admission and Anticipated Discharge Date Admission Date: February 02, 2021 Subjective POD #1 cystoscopy, bilateral retrograde pyelogram, bilateral ureteroscopic laser lithotripsy with stone extraction, and left stent placement with Dr. Sanchez. Patient examined at bedside - she is awake, alert and comfortable. Reports left flank pain has resolved. Does report mild discomfort to generalized abdomen. Reports hematuria as expected with stent. Dysuria is present. Denies significant urgency/frequency. Denies fevers or chills. Denies nausea or vomiting. Has been out of bed without dizziness/lightheadedness. Chart review: Afebrile Wbc 13.56 Hgb 10.3 Creatinine 1.06 Urine culture pending. Patient on empiric IV Ceftriaxone. Denies additional urologic concerns today. Review of Systems Constitutional: as per Subjective / HPI; no fever and no chills Gastrointestinal: as per Subjective / HPI; no nausea and no vomiting Genitourinary: as per Subjective / HPI Physical Exam Constitutional: well developed and well nourished; no acute distress and not ill appearing Respiratory: normal respiratory effort and able to speak in complete sentences; no respiratory distress and no audible wheezes Gastrointestinal (Abdomen): Inspection/Auscultation: abdomen normal to inspection; abdomen not distended Percussion/Palpation: abdomen soft; abdomen nontender and no guarding Psychiatric: Orientation: alert, oriented x 3 and cooperative Affect: euthymic affect Genitourinary: no CVA tenderness Stent strings secured to leg wtih steri- strip. Results & Data ([facility]) Vital Signs (Past 12 Hours) Vital Signs Temp Pulse Resp BP Pulse Ox 02/03/21 07:00 36.9 C 60 20 138/83 93 02/03/21 03:57 36.8 C 62 16 122/68 93 02/02/21 23:17 36.8 C 78 16 121/70 93 PG Care Time/CCT Total # of Minutes Spent Total Time Spent with Patient: Total time spent is greater than 50% in coordination of care (as documented) at patient's floor/unit and/or counseling patient: Coding Level of Care Code 55358 Subseq Hosp Care Lvl 2 Diagnoses Left ureteral calculus N20.1 Left flank pain R10.9 Right distal ureteral calculus N20.1
[2021-02-03] MEDS: LOSARTAN POTASSIUM 25 MG TAB PO SCH (08:23)
[2021-02-03] MEDS: ACETAMINOPHEN 325 MG TAB PO PRN ×2 (08:25→16:48)
--- NOTE | 2021-02-03 16:50 | Discharge Summary ---
Date of Service February 03, 2021 Admission HPI Per Admitting Provider CHIEF COMPLAINT: Left flank pain. HISTORY OF PRESENT ILLNESS: A 65-year-old female with past medical history significant for intermittent asthma, allergic rhinitis, venous insufficiency, hypertension, adjustment disorder with anxious mood, comes with left flank pain. The patient states she had left flank pain the other day at night for a couple of hours. It resolved and she went to work when she came back home in the evening, again around 11:00 p.m., she had severe pain in the left flank region with nausea, vomiting, which prompted her to come to the ER. Denies any hematuria and denies any fever or chills. No burning micturition. She also has some lower abdominal discomfort. When she came, the pain was 10/10 in severity, currently after pain medication pain is about 3/10 in severity. Denies any c hest pain, no shortness of breath, no cough, no fever, no headache, no blurred vision, no earache, no runny nose, no sore throat, no swelling in the legs, no rash. Currently, resting comfortably and hemodynamically stable. Admission Exam Per Admitting Provider GENERAL: The patient is of moderate build, not in acute distress. VITAL SIGNS: Temperature 36.4, pulse 78, respiratory rate 18, blood pressure 128/64, oxygen 94% on room air. HEENT: Pupils equal, round and reactive to light. Oral mucosa moist. NECK: No JVD. No neck masses. CARDIOVASCULAR: S1 and S2 heard. Regular rate and rhythm. No murmur, no gallop. RESPIRATORY SYSTEM: Normal AP diameter. No accessory muscle use. No wheezing, no crackles. ABDOMEN: Soft, bowel sounds present. Left CVA tenderness present. No guarding, no rigidity, no distention. CENTRAL NERVOUS SYSTEM: Cranial nerves II-XII grossly intact, nonfocal. EXTREMITIES: No edema, no erythema. Principal Diagnosis (1) Left ureteral calculus: (2) Left flank pain: (3) Right distal ureteral calculus: Discharge Exam General- No acute distress Head- atraumatic Eyes- PERRL, EOMI, ENT- oropharynx clear Neck- supple, no JVD Lungs- clear to auscultation Heart- regular rhythm; no murmur Abdomen- normal bowel sounds, soft, nontender Extremities- no calf tenderness Neuro- alert, oriented x 3; PERRL, EOMI; no facial palsy; no dysarthria Skin- warm & dry Discharge Data Allergies Allergy/AdvReac Type Severity Reaction Status Date / Time naproxen Allergy Intermediate Hives Verified 02/02/21 00:23 Consultations 02/02/21 02:28 ED Decision to Admit Stat 02/02/21 08:00 Consult Urology Routine Procedures Performed Operation Date: 02/02/21 09:25 Actual Procedures p Bilateral Retrograde Pyelogram, Bilateral Ureteroscopic Laser Lithotripsy with Stone Extraction, (Bilateral) - Xu Sanchez MD s Cystoscopy(Bilateral) - Xu Sanchez MD s Left Stent Placement(Left) - Xu Sanchez MD Ordered Studies 02/01/21 23:46 CT abd pelvis wo con Urgent 02/02/21 13:39 FL retrograde includes kub Routine Hospital Course (1) Left ureteral calculus: Present on admission with left flank pain CT abd/pelvis showed a 6 mm obstructing calculus in the left proximal ureter. This causes moderate to severe left hydroureteronephrosis. 9 mm calculus along the course of the distal right ureter located just above the right vesicoureteral junction. S/P Cystoscopy, Bilateral Retrograde Pyelogram, Bilateral Ureteroscopic Laser Lithotripsy with Stone Extraction, Left Stent Placement(B/L ) by Dr. Laura MD Continue flomax and gentle fluid Creatinine 1.48 on admission, then improves to 1.06 Ok from Urology standpoint to discharge Follow with urology office for stent removal Clinically improves UTI UA positive for Leukocytes Urine cx positive Gamma strep not enterococcus Pt was starting on Rocephin, will transition to Keflex on discharge History of hypertension Continue losartan. History Asthma On albuterol p.r.n. DVT px on SCD (2) Hydronephrosis with renal calculous obstruction: Total Time Total Time Spent Total Time Spent (In Minutes): 35 minutes Discharge Plan Discharge Items Patient Disposition: Home - Self-Care Reason For Visit: LEFT FLANK PAIN Discharge Diagnosis: (1) Left ureteral calculus: (2) Left flank pain: (3) Right distal ureteral calculus: Activity: Resume your previous activity Non-emergency contact: Primary Care Provider Call non-emergency contact if: you have any medication questions Follow-up/Referrals: Lashay Giron CRNP [Nurse Practitioner] - 02/15/21 2:30 pm (Virtual phone call visit) Cece Rausch MD [Primary Care Provider] - 02/16/21 12:00 pm (Date & Time 02/16/2021 12:00 PM Provider Cece Saleh MD Department [facility] ) [facility] Urology,Nurse [FAKE FOR SCHEDULES] - 02/04/21 10:40 am Diet: Heart Healthy Addtl Attending Provider Instructions: Follow up with your primary care provider Dr. Saleh on 02/16/2021 at 12:00 PM at the [facility] Follow up with urology on 02/04 for stent removal Complete the course of the antibiotic Hold tramadol if you become drowsy or lethargy Do not drive or operate any machine after taking tramadol Raegan Staff Physical Therapist Provider Instructions: Please take all medications as prescribed and keep all follow-ups as scheduled. Please call our office at [phone] with any questions, concerns or need to reschedule appointments for any reason. We are happy to assist you. While you have a ureteral stent in place: Some discomfort is normal. Certain movements may trigger pain or a feeling that you need to urinate. You may also feel mild soreness or pressure before or during urination. These symptoms should go away a few days after the stent is removed. Your urine may be slightly pink or red. This is due to bleeding caused by minor irritation from the stent. This may happen on and off while you have the stent, it is not harmful and is to be expected. Medication to help minimize discomfort or bladder spasms, or to prevent infection may be prescribed. Take this as directed. Drink plenty of fluids to help flush out your urinary tract. If you go home with a catheter, wash with soapy water and a fresh washcloth t wice daily. We recommend mild bar soap such as Dial or Dove. How long will you need a stent? An appointment should already be made for you for stent removal, unless directed otherwise. The stent is often taken out after the blockage in the ureter is treated or the ureter has healed. This may take 1-2 weeks, or longer. If a stent is needed for a longer period of time, it may need to be exchanged every few months. Likely prior to your followup appointment you will be asked to get an X-ray, please complete this the night before or morning of your appointment. When to call [facility] at [phone]: Your urine contains heavy blood clots You are constantly leaking urine Fever of 101F or higher, chills, nausea, or vomiting Your pain is not relieved with medication The end of the stent comes out of your urethra Pending Studies at Discharge: No Stand-Alone Forms: My [facility] Simple Beat, Smoking Cessation Medications and DC Order Prescriptions: New tamsulosin [Flomax] 0.4 mg capsule 0.4 mg PO HS Qty: 30 RF: 0 cephalexin 500 mg capsule 500 mg PO BID Qty: 6 RF: 0 tramadol 50 mg tablet 50 mg PO Q12H PRN (Reason: pain) Qty: 10 RF: 0 Continued losartan 25 mg tablet 25 mg PO QAM RF: 0 ibuprofen [Advil] 200 mg Tablet 600 mg PO Q6H PRN (Reason: Pain) RF: 0 albuterol sulfate 90 mcg/actuation HFA aerosol inhaler 2 puff INHALATION Q4H PRN (Reason: sob) RF: 0 Discharge Orders: Discharge Order (Routine); Ordered 02/03/21 Ordered By: Adele Oviedo Admission Data Admit Date/Time: 02/02/21 03:10 Attending Provider: Adele Oviedo Admit Provider: Camilo Quijano Primary Care Provider: Cece Rausch Other Providers: Camilo Quijano ; Rui Rose ; Deo Peacock ; Xu Sanchez ; Yas Moran ; Luke Rubin ; Yvonne Valentine Melissa A. ; Deyanira Barakat ; Paul Taylor ; Ryder Wilkerson ; Robyn Bernstein ; Serina Barakat ; Kellee Pepper I. Other Interventions: Discharge Summary Assessment (RN) Last Done: 02/03/21 17:07
[2021-02-07 15:21] LABS: Component 2 DNR; Source URETER STONE
--- NOTE | 2021-02-11 14:50 | Coding Query ---
CODING QUERY To promote full compliance with coding requirements relating to patient care, provider participation is requested in all cases of journalists and other writers uncertainty. Please assist us with the question(s) below: Coding Question(s): Pt admitted for ureter calculus / extraction . Please review Urine Culture and provide a diagnosis if applicable. Thanks for your help. HOMA Luna [facility] Physician's Response(s): Left ureteral calculus: Right distal ureteral calculus: Principal Diagnosis: "that condition established after study, to be chiefly responsible for occasioning the admission of the patient to the hospital for care." Co-Existing Principal Diagnosis: "when two or more diagnoses equally meet the criteria for principal diagnosis as determined by the circumstances of admission, diagnostic work up, and/or therapy provided, and the Alphabetic Index, Tabular List, or another coding guideline does not provide sequencing direction, any one of the diagnoses may be sequenced first." "When the physician has documented what appears to be a current diagnosis in the body of the record, but has not included the diagnosis in the final diagnostic statement, the physician should be asked whether the diagnosis should be added." (Source Coding Clinic 2 QTR90. p3-4) HERMINIO
== END 2021-02-03 17:47 | disposition home or self-care (01) | DRG 661 ==
LOC: ED 22:14 → 3W 02-02 03:10 → SUATTDRO 02-02 03:10 → 3W 02-02 04:42
DX: I10 Essential (primary) hypertension; F43.22 Adjustment disorder with anxiety; Z88.8 Allergy status to other drugs, medicaments and biological substances; J45.20 Mild intermittent asthma, uncomplicated; N17.9 Acute kidney failure, unspecified; N13.2 Hydronephrosis with renal and ureteral calculous obstruction; Z88.6 Allergy status to analgesic agent

== ENCOUNTER 2025-06-19 13:30 | Inpatient (IN) ==
--- NOTE | 2025-06-19 13:41 | Emergency Department Note ---
ED Provider Note History of Present Illness Chief Complaint: Fall Stated Complaint: FALL, HIP PAIN Time Seen by Provider: 06/19/25 13:32 Source: patient Mode of arrival: ambulatory Limitations: no limitations Patient is a 70-year-old female who presents to the emergency department with complaints of a fall from 2 steps. Patient states that she was on a stepladder when she fell off backwards and landed on her bottom. Patient states that she landed just on her butt and denies hitting her head or back. Patient denies any loss of consciousness and denies any blood thinner use. Patient denies any other pain or injuries. Home Medications Medication Instructions Recorded Confirmed Type albuterol sulfate 90 mcg/actuation 2 puff inhalation Q4H PRN sob 05/03/20 06/19/25 History aerosol inhaler mometasone 0.1 % topical ointment 1 applic topical DAILY PRN 07/19/23 06/19/25 Rx dermatitis #45 grams omeprazole 20 mg capsule,delayed 20 mg PO DAILY #90 caps 07/15/24 06/19/25 Rx release atorvastatin 20 mg tablet 20 mg PO DAILY #90 tabs 12/24/24 06/19/25 Rx furosemide 20 mg tablet 20 mg PO DAILY PRN edema #30 tabs 12/24/24 06/19/25 Rx losartan 25 mg tablet 25 mg PO QAM #90 tabs 12/31/24 06/19/25 Rx ibuprofen 800 mg tablet 800 mg PO Q8H #270 tabs 04/03/25 06/19/25 Rx Allergies Allergy/AdvReac Type Severity Reaction Status Date / Time naproxen Allergy Intermediate Hives Verified 02/02/21 00:23 Past Med/Surg History Problem List (Updated 06/19/25 @ 16:53 by Misha Lopez DO) Leukocytosis Fall from standing Fracture, intertrochanteric, left femur Fall (Acute) Closed hip fracture (Acute) Encounter for annual health examination Right distal ureteral calculus Left ureteral calculus Hydronephrosis with renal calculous obstruction No significant past surgical history No chronic diseases present Healthcare maintenance Medical History Right distal ureteral calculus Left flank pain Social History Smoking Status: Never smoker Hx Alcohol Use: No Hx Substance Use: No Preferred Language: [place] Communication Ability: Effective Auto Glass Installer Required: No Beliefs That Will Affect Care: None Current Living Situation: Alone Feels Safe at Home: Yes Assistive Devices: None Physical Exam Vital Signs Vital Signs - 24 hr 06/19/25 13:30 06/19/25 15:48 Temperature 36.4 C L Temperature Source Oral Pulse Rate 65 Pulse Rate [Finger] 72 Respiratory Rate 16 18 Respiratory Effort / Characteristics Non-Labored Spontaneous Respiratory Depth Normal Respiratory Pattern Regular Blood Pressure 144/78 H Blood Pressure [Left Arm] 161/75 H Blood Pressure Mean 100 Blood Pressure Mean [Left Arm] 103 Blood Pressure Position Semi-fowlers Pulse Oximetry 99 97 Oxygen Delivery Method Room Air Room Air Sepsis Recent Fever Within 48 Hours No Sepsis New/Unexplained Change in Mental Status No Sepsis Action Taken by Nursing No Action Required Physical Exam: VITAL SIGNS - Vital signs and nursing notes were reviewed. GENERAL -70-year-old female appearing her stated age and in noticeable discomfort throughout the exam. Patient presents to the emergency department via EMS. MUSCULOSKELETAL -left lower extremity presents with some mild edema without any evidence of erythema or ecchymosis.. Increased tenderness to palpation appreciated over the entire left hip. No tenderness extending into the foot or ankle. Decreased strength appreciated secondary to patient discomfort. Pt limited AROM at affected joint. NEUROLOGIC/VASCULAR - Neurovascularly intact distally with +3/5 dorsalis pedis pulses palpated bilaterally. Intact sensation to light and sharp touch appreciated distally. Course Administered Medications Discontinued Medications Fentanyl Citrate (Fentanyl Citrate Pf 100 Mcg/2 Ml Vial) 50 mcg IV NOW STA Stop: 06/19/25 14:08 Last Admin: 06/19/25 14:13 Dose: 50 mcg Documented By: SHANEKA Fentanyl Citrate (Fentanyl Citrate Pf 100 Mcg/2 Ml Vial) 50 mcg IV NOW STA Stop: 06/19/25 15:05 Last Admin: 06/19/25 15:45 Dose: 50 mcg Documented By: CHANDLER Acetaminophen (Ofirmev) 1,000 mg in 100 mls @ 400 mls/hr IV NOW STA Stop: 06/19/25 15:18 Last Infusion: 06/19/25 16:05 Dose: Infused Documented By: Admin: 06/19/25 15:45 Dose: 400 mls/hr Documented By: CHANDLER Medical Decision Making Differential Diagnosis Fracture, dislocation, muscular strain, sprain, ligamentous injury, among others Medical Records Attestation: I reviewed the patient's medical records. Home Medications was personally reviewed by me Laboratory Data 06/19/25 15:30 06/19/25 15:30 Lab Results 06/19/25 Range/Units 15:30 WBC 20.60 H (4.8-10.8) K/ul RBC 4.06 L (4.20-5.40) M/uL Hgb 11.7 L (12.0-16.0) g/dL Hct 35.6 L (37.0-47.0) % MCV 87.7 (80.0-100.0) fL MCH 28.8 (25.0-34.0) pg MCHC 32.9 (32.0-36.0) g/dL RDW Std Deviation 42.1 (36.4-46.3) fL RDW Coeff of Dalila 13.2 (11.5-14.5) % Plt Count 281 (130-400) K/uL MPV 9.5 (9.4-12.4) fL Immature Gran % (Auto) 0.4 % Neut % (Auto) 86.7 % Lymph % (Auto) 6.9 % [place] % (Auto) 5.4 % Eos % (Auto) 0.2 % Baso % (Auto) 0.4 % Neut # (Auto) 17.86 H (1.40-6.50) K/uL Lymph # (Auto) 1.42 (1.20-3.40) K/uL [place] # (Auto) 1.11 H (0.11-0.59) K/uL Eos # (Auto) 0.04 (0.00-0.50) K/uL Baso # (Auto) 0.08 (0.00-0.20) K/uL Immature Gran # (Auto) 0.09 (0.01-0.20) K/uL Sodium 138 (136-145) mmol/L Potassium 3.5 (3.5-5.1) mmol/L Chloride 108 H (98-107) mmol/L Carbon Dioxide 24 (21-32) mmol/L Anion Gap 6 (3-11) BUN 14 (6-23) mg/dl Creatinine 0.74 (0.6-1.2) mg/dl Est Cr Clr Drug Dosing 76.0 ml/min eGFR 88.07 BUN/Creatinine Ratio 18.9 (10-20) Glucose 126 H (70-99(Fasting)) mg/dl Calcium 8.8 (8.6-10.3) mg/dl Total Bilirubin 0.6 (0.2-1.0) mg/dl AST 12 L (13-39) U/L ALT 9 (7-52) U/L Alkaline Phosphatase 89 (34-104) U/L Total Protein 5.9 L (6.0-8.3) gm/dl Albumin 3.7 (3.4-5.0) gm/dl Globulin 2.2 L (2.5-4.0) gm/dl Albumin/Globulin Ratio 1.7 (0.9-2) Imaging Data Radiologist's Impression: Hip/Pelvis X-Ray 06/19/25 13:39 EXAM: Radiographs of the Left Hip 3 Views INDICATION: Fall TECHNIQUE: AP view of the pelvis and AP and crosstable lateral views of the left hip obtained. COMPARISON: No relevant prior studies available. FINDINGS: Limitations: None. Bones/joints: There is a comminuted intertrochanteric fracture of the left femur with about 45 degrees angulation. No dislocation. Soft tissues: No abnormality noted. No radiopaque foreign body noted. IMPRESSION: Angulated comminuted intertrochanteric fracture of the left femur. ACT 112: N/A Electronically signed by Negrita Avendano 06-19-2025 3:20 PM Chest X-Ray 06/19/25 13:41 EXAM: Radiograph of the Chest 1 View INDICATION: Fall. TECHNIQUE: Frontal view of the chest. COMPARISON: 02/02/2021 FINDINGS: Lungs and pleural spaces: No consolidation or pulmonary edema. No pleural effusion or pneumothorax. Heart: Stable enlarged cardiac shadow. Mediastinum: Normal contour. Bones/joints: No fracture, erosion or dislocation. Soft tissues: No abnormality noted. No radiopaque foreign body noted. Upper abdomen: No abnormality noted. IMPRESSION: No acute cardiopulmonary disease. ACT 112: N/A Electronically signed by Negrita Avendano 06-19-2025 3:18 PM MDM Narrative Patient is a 70-year-old female who presents to the emergency department with complaints of a fall from 2 steps. Patient states that she was on a stepladder when she fell off backwards and landed on her bottom. Patient states that she landed just on her butt and denies hitting her head or back. Patient denies any loss of consciousness and denies any blood thinner use. Patient denies any other pain or injuries. Patient was evaluated by myself and findings were noted in the physical exam above. Patient was ordered an x-ray of her chest and left hip and pelvis. Patient had 100 mcg of fentanyl via IV and route to the hospital by EMS. Patient reports her pain to be a 7 out of 10 at this time. Patient was ordered a subsequent dose of fentanyl for her discomfort. Upon reevaluation the patient states that she still having some relatively significant pain. Patient was ordered 50 mcg of fentanyl. Patient's chest x-ray was completed and interpreted by radiology to show no evidence of acute cardiopulmonary disease. Patient also had an x-ray of her left hip and pelvis which was completed and interpreted by radiology to note a comminuted intro trochanteric fracture of the left femur with about 45 degrees of angulation. I discussed these findings with the patient who verbalized understanding. I discussed with the patient that she would be admitted to the hospital and orthopedic surgery would be consulted as her injury will require surgical repair. Patient verbalized understanding and was agreeable to the plan for admission to the hospital. I reached out and spoke with Dr. Herrera from [facility] hospitalist group. He advised that he needed me to speak with the orthopedic surgery team to ensure that this was an injury that they would be able to reasonably repair here at [facility]. I reached out and spoke with LUCA Barajas with orthopedic surgery. He advised that Dr. Kaplan was willing to keep the patient here at [facility] as he felt that this was manageable here. I made the hospitalist team aware. Dr. Herrera verbalized understanding and was agreeable to admit the patient under his service. Please refer to the [facility] hospitalist group and orthopedic surgery's documentation for further evaluation and management of this patient. Impression Closed hip fracture, Fall Discharge Plan Visit Data Chief Complaint: Fall Stated Complaint: FALL, HIP PAIN ED Provider: Kaushal Verma ED Midlevel Provider: Flora Houser Discharge Problem: Closed hip fracture, Fall Patient Disposition: Admitted As Inpatient Condition: Fair Forms Stand Alone Forms: My [facility], Important Visit Information Prescriptions Prescriptions: No Action mometasone 0.1 % ointment 1 applic topical DAILY PRN (Reason: dermatitis) Qty: 45 5RF omeprazole 20 mg capsule,delayed release(DR/EC) 20 mg PO DAILY Qty: 90 3RF atorvastatin 20 mg tablet 20 mg PO DAILY Qty: 90 3RF furosemide 20 mg tablet 20 mg PO DAILY PRN (Reason: edema) Qty: 30 3RF losartan 25 mg tablet 25 mg PO QAM Qty: 90 3RF ibuprofen 800 mg tablet 800 mg PO Q8H Qty: 270 3RF albuterol sulfate 90 mcg/actuation HFA aerosol inhaler 2 puff INHALATION Q4H PRN (Reason: sob) Referrals Referrals: Cece Sheridan MD [Primary Care Provider] - ED DC CONDITION Conditon at Discharge Condition at Discharge: Fair Discharge Problem: Closed hip fracture Qualifiers: Encounter type: initial encounter Laterality: left Qualified Code(s): S72.002A - Fracture of unspecified part of neck of left femur, initial encounter for closed fracture Fall Qualifiers: Encounter type: initial encounter Qualified Code(s): W19.XXXA - Unspecified fall, initial encounter
--- NOTE | 2025-06-19 15:18 | XRay Report ---
EXAM: Radiograph of the Chest 1 View INDICATION: Fall. TECHNIQUE: Frontal view of the chest. COMPARISON: 02/02/2021 FINDINGS: Lungs and pleural spaces: No consolidation or pulmonary edema. No pleural effusion or pneumothorax. Heart: Stable enlarged cardiac shadow. Mediastinum: Normal contour. Bones/joints: No fracture, erosion or dislocation. Soft tissues: No abnormality noted. No radiopaque foreign body noted. Upper abdomen: No abnormality noted. IMPRESSION: No acute cardiopulmonary disease. ACT 112: N/A Electronically signed by Negrita Avendano 06-19-2025 3:18 PM
--- NOTE | 2025-06-19 15:20 | XRay Report ---
EXAM: Radiographs of the Left Hip 3 Views INDICATION: Fall TECHNIQUE: AP view of the pelvis and AP and crosstable lateral views of the left hip obtained. COMPARISON: No relevant prior studies available. FINDINGS: Limitations: None. Bones/joints: There is a comminuted intertrochanteric fracture of the left femur with about 45 degrees angulation. No dislocation. Soft tissues: No abnormality noted. No radiopaque foreign body noted. IMPRESSION: Angulated comminuted intertrochanteric fracture of the left femur. ACT 112: N/A Electronically signed by Negrita Avendano 06-19-2025 3:20 PM
[2025-06-19] MEDS: ACETAMINOPHEN 1,000 MG/100 ML VIAL IV STA (15:45)
[2025-06-19 15:53] LABS: Hematocrit (blood only) 35.6 % (37.0-47.0); Hemoglobin 11.7 g/dL (12.0-16.0); Immature Granulocytes # (auto) 0.09 K/uL (0.01-0.20); Immature Granulocytes % (auto) 0.4 %; Mean Corpuscular Hemoglobin 28.8 pg (25.0-34.0); Mean Corpuscular Volume 87.7 fL (80.0-100.0); Platelet Count 281 K/uL (130-400); RDW Standard Deviation 42.1 fL (36.4-46.3); Red Blood Count 4.06 M/uL (4.20-5.40); White Blood Count 20.60 K/ul (4.8-10.8)
[2025-06-19 16:10] LABS: Alanine Aminotransferase 9.0 U/L (7-52); Albumin Globulin Ratio 1.7 (0.9-2); Albumin Level 3.7 gm/dl (3.4-5.0); Alkaline Phosphatase 89.0 U/L (34-104); Anion Gap 6.0 (3-11); Bilirubin,Total 0.6 mg/dl (0.2-1.0); Blood Urea Nitrogen 14.0 mg/dl (6-23); Calcium 8.8 mg/dl (8.6-10.3); Carbon Dioxide 24.0 mmol/L (21-32); Chloride 108.0 mmol/L (98-107); Creatinine Clr Calc Pharmacy 76.0 ml/min; Globulin 2.2 gm/dl (2.5-4.0); Glucose 126.0 mg/dl (70-99(Fasting)); Potassium 3.5 mmol/L (3.5-5.1); Sodium 138.0 mmol/L (136-145); Total Protein 5.9 gm/dl (6.0-8.3)
--- NOTE | 2025-06-19 16:54 | History & Physical Report ---
Date of Service June 19, 2025 Assessment & Plan (1) Fracture, intertrochanteric, left femur: (2) Fall from standing: (3) Leukocytosis: Plan: Reactive Plan 70-year-old female who had a fall from standing after losing her balance adjusting her blinds. Imaging in the ED consistent with left intertrochanteric fracture. Admit to the Medr unit Pain control Continue outpatient medications as ordered Consult orthopedics N.p.o. after midnight Case management consultation, may need rehab post repair. Son at bedside and agreeable to plan of care as well. History of Present Illness Chief Complaint: Fall at home with severe left hip pain and inability to walk Primary Care Provider: Cece Sheridan MD Patient is a 70-year-old female overall in good state of health this morning was attempting to open the blinds. The aicha that adjust the blinds broke and she lost her balance and fell to the floor. She had immediate pain in her left hip and was unable to stand. She was able to call her son using [employer]. He came to the house and called 911. In the emergency room imaging was consistent with a left intertrochanteric fracture of the femur. Other laboratory studies were remarkable for a elevated WBCs most likely inflammatory. The case was reviewed with orthopedics by ED provider who felt that this fracture could be managed here. She was referred to our service for hospital management. Time of my evaluation patient's pain is managed. She denies any fever or chills. No cough or cold symptoms. No chest pain, no shortness of breath, no nausea vomiting. Has been eating and drinking normally. Bowels and bladder have been functioning normally. States that overall she has been in a good state of health and was feeling well. It was pure accident and malfunction of the blinds that caused her to fall. Allergies Allergy/AdvReac Type Severity Reaction Status Date / Time naproxen Allergy Intermediate Hives Verified 02/02/21 00:23 Home Medications Medication Instructions Recorded Confirmed Type albuterol sulfate 90 mcg/actuation 2 puff inhalation Q4H PRN sob 05/03/20 06/19/25 History aerosol inhaler mometasone 0.1 % topical ointment 1 applic topical DAILY PRN 07/19/23 06/19/25 Rx dermatitis #45 grams omeprazole 20 mg capsule,delayed 20 mg PO DAILY #90 caps 01/20/25 12/25/25 Rx release atorvastatin 20 mg tablet 20 mg PO DAILY #90 tabs 12/24/24 06/19/25 Rx furosemide 20 mg tablet 20 mg PO DAILY PRN edema #30 tabs 12/24/24 06/19/25 Rx losartan 25 mg tablet 25 mg PO QAM #90 tabs 12/31/24 06/19/25 Rx ibuprofen 800 mg tablet 800 mg PO Q8H #270 tabs 04/03/25 06/19/25 Rx Past Med/Surg History Problem List (Updated 06/19/25 @ 16:53 by Misha Lopez DO) Leukocytosis Fall from standing Fracture, intertrochanteric, left femur Fall (Acute) Closed hip fracture (Acute) Encounter for annual health examination Right distal ureteral calculus Left ureteral calculus Hydronephrosis with renal calculous obstruction No significant past surgical history No chronic diseases present Healthcare maintenance Medical History Right distal ureteral calculus Left flank pain Social History Smoking Status: Never smoker Hx Alcohol Use: No Hx Substance Use: No Preferred Language: Divehi Communication Ability: Effective Data Entry Assistant Required: No Beliefs That Will Affect Care: None Current Living Situation: Alone Feels Safe at Home: Yes Assistive Devices: None Review of Systems Review of Systems: Pertinent positive and negative review of systems as mentioned in the HPI Physical Exam Physical Exam: Constitutional: Alert, nontoxic HEENT: Mucous membranes moist. Sclera clear Neck: Soft, no adenopathy Lungs: Clear to auscultation, decreased, no wheezes rales or rhonchi CV: S1-S2, regular Abdomen: Soft, nontender, nondistended Extremities: No significant edema, left lower extremity shortened, externally rotated, pain with any type of movement Musculoskeletal: No other swollen joints other than mentioned above Neuro: No focal deficits, sensation intact Psych: Cooperative, normal mood Results & Data Results & Data Vital Signs (Past 12 Hours) Vital Signs Temp Pulse Resp BP Pulse Ox O2 Del Method 06/19/25 13:30 36.4 C L 65 16 144/78 H 99 Room Air Diagnostic Findings [facility] Reviewed hip x-ray, left intro trochanteric her with some angulation. Chest x-ray report reviewed: No acute abnormalities WBCs 20.6 Hemoglobin [place] 0.7 Platelets of 281 Electrolytes stable Creatinine 7.4 Glucose 126 Code Status & VTE Plan VTE Prophylaxis Plan VTE Prophylaxis will be ordered: Yes
[2025-06-19] MEDS ORDERED: ALBUTEROL HFA 8 GM INHALER INH PRN (17:57)
[2025-06-19] MEDS ORDERED: ACETAMINOPHEN 500 MG TAB PO PRN (17:57)
[2025-06-19] MEDS ORDERED: MELATONIN 3 MG TAB PO PRN (17:57)
[2025-06-19] MEDS ORDERED: ALUMINUM/MAGNESIUM SUSP 30 ML UDC PO PRN (17:57)
[2025-06-19] MEDS: LORazepam 0.5 MG TAB PO PRN (18:37)
[2025-06-19] MEDS: ONDANSETRON INJ 2 MG/ML 2 ML VIAL IV PRN (19:26)
[2025-06-20] MEDS ORDERED: ATROPINE SULFATE 0.1 MG/ML 10ML SYR IV PRN (06:32)
[2025-06-20] MEDS ORDERED: PROMETHAZINE HCL 6.25 MG in SODIUM CHLORIDE 0.9% 50 ML IV PRN (06:32)
[2025-06-20] MEDS ORDERED: ONDANSETRON INJ 2 MG/ML 2 ML VIAL IV PRN (06:32)
[2025-06-20 06:37] LABS: Anion Gap 8.0 (3-11); Blood Urea Nitrogen 15.0 mg/dl (6-23); Calcium 8.8 mg/dl (8.6-10.3); Carbon Dioxide 24.0 mmol/L (21-32); Chloride 106.0 mmol/L (98-107); Creatinine Clr Calc Pharmacy 69.5 ml/min; Glucose 114.0 mg/dl (70-99(Fasting)); Potassium 3.8 mmol/L (3.5-5.1); Sodium 138.0 mmol/L (136-145)
--- NOTE | 2025-06-20 06:37 | Orthopedic Consultation ---
Date of Service June 20, 2025 Assessment & Plan (1) Fracture, intertrochanteric, left femur: 70-year-old female relatively healthy status post a fall with left intertrochanteric hip fracture. She has been admitted by the medicine service, medically optimized indicated for surgical repair. Plan: Organ to take her to the operating room do a left long trochanteric nail for fixation of this fracture. The risks and bents this procedure explained. Informed consent was obtained. Were hoping to do that this morning. We use aspirin for DVT prophylaxis. History of Present Illness Reason for Consultation: . Left hip fracture. Requesting Physician: . Attending Physician: Misha Lopez DO . 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 She was trying to open her blinds when she kind of stumbled lost her balance and fell and reinjured her left hip. She had acute onset of pain. Could not ambulate. Brought to the emergency room where x-rays raise revealed a left intertrochanteric hip fracture. She has been admitted by the medicine service and medically optimized and desires surgical repair. Allergies Allergy/AdvReac Type Severity Reaction Status Date / Time naproxen Allergy Intermediate Hives Verified 02/02/21 00:23 Home Medications Medication Instructions Recorded Confirmed Type albuterol sulfate 90 mcg/actuation 2 puff inhalation Q4H PRN sob 05/03/20 06/19/25 History aerosol inhaler mometasone 0.1 % topical ointment 1 applic topical DAILY PRN 07/19/23 06/19/25 Rx dermatitis #45 grams omeprazole 20 mg capsule,delayed 20 mg PO DAILY #90 caps 07/15/24 06/19/25 Rx release atorvastatin 20 mg tablet 20 mg PO DAILY #90 tabs 12/24/24 06/19/25 Rx furosemide 20 mg tablet 20 mg PO DAILY PRN edema #30 tabs 12/24/24 06/19/25 Rx losartan 25 mg tablet 25 mg PO QAM #90 tabs 12/31/24 06/19/25 Rx ibuprofen 800 mg tablet 800 mg PO Q8H #270 tabs 04/03/25 06/19/25 Rx Past Med/Surg History Problem List (Updated 06/20/25 @ 06:36 by Cash Benjamin MD) Leukocytosis Fall from standing Fracture, intertrochanteric, left femur Fall (Acute) Encounter for annual health examination Right distal ureteral calculus Left ureteral calculus Hydronephrosis with renal calculous obstruction No significant past surgical history No chronic diseases present Healthcare maintenance Medical History Right distal ureteral calculus Left flank pain Social History Smoking Status: Never smoker Do You Dip or Chew Tobacco: No; Tobacco Cessation Education Requested by Patient: No Hx Alcohol Use: No Hx Substance Use: No Preferred Language: Citizen Of [place] Communication Ability: Effective Movie Operator Required: No Beliefs That Will Affect Care: None Current Living Situation: Alone Other Information That Helps Us Care for You: No Feels Safe at Home: Yes Safety Concerns: Feels Safe At This Time Assistive Devices: Walker Review of Systems All systems reviewed & are unremarkable except as noted in HPI & below. Physical Exam . Physical examination is a pleasant middle-age female. She is lying in bed looks comfortable. Examination of the left hip and leg reveals to be slightly shortened externally rotated. No signal swelling. No knee effusion. She got pain with any type of hip motion. She is neurologically intact. Results & Data Results & Data Laboratory Results . Diagnostic Findings . X-rays of the left hip and femur reveal a left intertrochanteric hip fracture. Mild arthritis. PG Care Time/CCT Total # of Minutes Spent Total Time Spent with Patient: Total time spent is greater than 50% in coordination of care (as documented) at patient's floor/unit and/or counseling patient: Coding Level of Care Code 62166 IN/OBS CONSULT LVL 5,80M Diagnoses Fracture, intertrochanteric, left femur S72.142A
--- NOTE | 2025-06-20 06:37 | Anesthesiology Consultation ---
Date of Service June 20, 2025 Assessment & Plan (1) Encounter for pre-operative examination: Chart Review Chart Review: Acceptable Risk for Surgery and Patient NOT seen in Pre Admission Testing Consults Requested none History Surgery Operation Date: 06/20/25 07:00 Proposed Procedures p Left Femur IM Nailing - Matthew Kaplan MD Height/Weight Height: 5 ft 3 in Weight: 86.9 kg Allergies Allergy/AdvReac Type Severity Reaction Status Date / Time naproxen Allergy Intermediate Hives Verified 02/02/21 00:23 Medications Home Medications Medication Instructions Recorded Confirmed Last Taken albuterol sulfate 90 mcg/actuation 2 puff inhalation Q4H PRN sob 05/03/20 06/19/25 Unknown aerosol inhaler mometasone 0.1 % topical ointment 1 applic topical DAILY PRN 07/19/23 06/19/25 Unknown dermatitis #45 grams omeprazole 20 mg capsule,delayed 20 mg PO DAILY #90 caps 07/15/24 06/19/25 Unknown release atorvastatin 20 mg tablet 20 mg PO DAILY #90 tabs 12/24/24 06/19/25 Unknown furosemide 20 mg tablet 20 mg PO DAILY PRN edema #30 tabs 12/24/24 06/19/25 Unknown losartan 25 mg tablet 25 mg PO QAM #90 tabs 12/31/24 06/19/25 Unknown ibuprofen 800 mg tablet 800 mg PO Q8H #270 tabs 04/03/25 06/19/25 Unknown Active Medications Generic Name Dose Route Start Last Admin Trade Name Freq PRN Reason Stop Dose Admin Lorazepam 0.5 mg 06/19/25 18:33 06/19/25 18:37 Lorazepam 0.5 Mg Tab PO 07/19/25 18:32 0.5 mg Q8H PRN Administration Anxiety/discomfort Ondansetron HCl 4 mg 06/19/25 17:57 06/19/25 19:26 Ondansetron Inj 2 Mg/Ml 2 Ml Vial IV 07/19/25 17:56 4 mg Q6H PRN Administration Nausea Oxycodone HCl 10 mg 06/19/25 17:19 06/20/25 05:09 Oxycodone Hcl Ir 10 Mg Tab (Immediate Release) PO 07/03/25 17:18 10 mg Q3H PRN Administration Pain Oxycodone HCl 5 mg 06/19/25 17:57 06/19/25 21:07 Oxycodone Hcl Ir 5 Mg Tab (Immediate Release) PO 07/03/25 17:56 5 mg Q3H PRN Administration Moderate Pain (Scale 4, 5, 6) Past Medical History Medical History (Updated 06/20/25 @ 06:36 by Cash Benjamin MD) Closed hip fracture Right distal ureteral calculus Left flank pain Social History Smoking Status: Never smoker Do You Dip or Chew Tobacco: No Hx Alcohol Use: No Hx Substance Use: No Physical Exam Vital Signs Last Vital Signs Temp 36.7 C 06/19/25 22:29 Pulse 69 06/19/25 22:29 Resp 16 06/19/25 22:29 BP 123/74 06/19/25 22:29 Pulse Ox 98 06/19/25 22:29 O2 Del Method Room Air 06/19/25 22:29 Testing Laboratory Results 06/19/25 15:30 Blood Type O Positive 06/19/25 17:28 Antibody Screen NEGATIVE 06/19/25 17:28 Electrocardiogram Date: 02/13/21 DICTATED BY: Timothy Green MD Test Reason : Blood Pressure : / mmHG Vent. Rate : 063 BPM Atrial Rate : 063 BPM P-R Int : 118 ms QRS Dur : 082 ms QT Int : 434 ms P-R-T Axes : 038 012 032 degrees QTc Int : 444 ms Poor data quality, interpretation may be adversely affected Normal sinus rhythm Nonspecific T wave abnormality Abnormal ECG No previous ECGs available Confirmed by Timothy Green ([id number]) on 02/02/2021 3:25:03 PM
[2025-06-20] MEDS ORDERED: ROCURONIUM BROMIDE 10 MG/ML 5 ML VIAL IV ONE (06:38)
[2025-06-20] MEDS ORDERED: ONDANSETRON INJ 2 MG/ML 2 ML VIAL ONE (06:38)
[2025-06-20] MEDS ORDERED: KETAMINE HCL 10MG/ML SYR ONE (06:38)
[2025-06-20] MEDS ORDERED: PROPOFOL IV EMULSION 10 MG/ML 20 ML VIAL IV ONE (06:38)
[2025-06-20] MEDS ORDERED: LIDOCAINE 2% 2 ML VIAL/AMP(20MG/ML) INFIL ONE (06:38)
[2025-06-20] MEDS ORDERED: MIDAZOLAM HCL 1 MG/ML 2ML VIAL ONE (06:38)
[2025-06-20] MEDS ORDERED: DEXAMETHASONE SOD INJ 4 MG/ML VIAL ONE (06:38)
[2025-06-20] MEDS: LACTATED RINGER'S 1,000 ML IV SCH (06:54)
[2025-06-20] MEDS: TRANEXAMIC ACID / 0.7% NACL 1,000 MG/100 ML BAG IV ONE (07:09)
[2025-06-20] MEDS: TRANEXAMIC ACID / 0.7% NACL 1000MG/100ML BAG IV ONE (07:10)
[2025-06-20 07:48] LABS: Hematocrit (blood only) 34.4 % (37.0-47.0); Hemoglobin 11.0 g/dL (12.0-16.0); Mean Corpuscular Hemoglobin 28.4 pg (25.0-34.0); Mean Corpuscular Volume 88.9 fL (80.0-100.0); Platelet Count 255 K/uL (130-400); RDW Standard Deviation 43.3 fL (36.4-46.3); Red Blood Count 3.87 M/uL (4.20-5.40); White Blood Count 8.53 K/ul (4.8-10.8)
[2025-06-20] MEDS: BUPIVACAINE/EPINEPHRINE 0.5% MPF 1:200,000 30 ML VIAL ONE (08:10)
[2025-06-20] MEDS ORDERED: SUGAMMADEX SODIUM 200 MG/2 ML VIAL IV ONE (08:18)
[2025-06-20] MEDS: LOSARTAN POTASSIUM 25 MG TAB PO SCH (08:18)
[2025-06-20] MEDS: ATORVASTATIN 20 MG TAB PO SCH (08:19)
[2025-06-20] MEDS ORDERED: HYDROmorphone INJ 2 MG/ML SYR/VIAL ONE (08:31)
--- NOTE | 2025-06-20 08:39 | Hospitalist Progress Note ---
Date of Service June 20, 2025 Assessment & Plan (1) Fracture, intertrochanteric, left femur: (2) Fall from standing: (3) Leukocytosis: Plan Patient is a 70y/o F with PMHx significant for asthma, allergic rhinitis, venous insufficiency, HTN, nocturnal leg cramps, obesity, adjustment disorder with anxious mood, HLD and h/o renal stones who presented to the ED on 06/19/25 with c/o L hip pain s/p mechanical fall and was found to have an intertrochanteric fracture of the L femur. #Acute angulated comminuted intertrochanteric fracture of the L femur s/p mechanical fall #S/p L femur intramedullary nailing performed by Dr. Kaplan on 06/20/25 Continue PRN analgesia, wound care Activities as per ortho ASA 81mg BID for DVT prophylaxis as per ortho Appreciate PT/OT evals Monitor H/H for ABLA and transfuse blood products PRN (preop Hgb 11) Intraop/postop ABX as per ortho (Ancef) Scheduled bowel regimen #Leukocytosis POA Now resolved CXR negative Likely was reactive 2/2 pain Continue to monitor #Pruritus across chest wall s/p above surgery No visible rash seen Given low-dose IV Benadryl with improvement in sx Unclear etiology, possibly 2/2 fentanyl given during surgery Continue to monitor DVT Prophylaxis: ASA as per ortho Code Status: FULL CODE PCP: Cece Sheridan MD Disposition: DC plans uncertain at this time pending PT/OT evals Patient seen in collaboration with Dr. Hull. Please see addendum. I spent a total of 40 minutes coordinating, documenting, and providing care for this patient excluding time spent in the performance of separately billed services or time spent by another provider/QHP. This included personally reviewing all current laboratories and imaging studies, medical reconciliation, outpatient chart review and discussion with specialists. Admission and Anticipated Discharge Date Admission Date: June 19, 2025 Supervising Physician Co-Signing Physician Notes Patient is seen and examined at bedside. Drowsy, lethargic postoperatively during my encounter today. No distress on exam. No family at bedside. Please review HPI as above. On exam patient is obese, no apparent distress, normocephalic atraumatic, EOMI, drowsy, lethargic, normal breath sounds, clear to auscultation, S1-S2,? Murmur, abdomen soft, nontender, left hip surgical site in dressing, no pedal edema, unable to perform complete neurological exam. Patient is currently being managed for left femur fracture s/p left femur intramedullary nailing by Dr. Kaplan today. Monitor for postop anemia. Pain control, bowel regimen to prevent constipation. PT OT as able. SCDs for now. I personally interviewed and examined the patient at bedside. I have reviewed the advanced practitioner's documentation on the date of service referred in note and agree with plan. Patient's care is coordinated with Abby Song. Please refer to the documentation above for details of patient's presentation and for discussion of other issues. I spent a total [id number] coordinating, documenting, and providing care for this patient excluding time spent in the performance of separately billed services or time spent by another provider/QHP. Subjective Patient seen and examined in room E316-1 s/p L femur surgical repair earlier this morning. Describes pruritic sensation across chest wall, no visible rash. Denies any SOB or chest pain. Mentions feeling quite sleepy following the operation. Review of Systems Review of Systems: At least ten systems reviewed and negative, except as noted in the subjective section. Physical Exam Physical Exam: General: Laying down in bed, NAD, sleepy but easily arousable, A&Ox3 HEENT: Normocephalic, atraumatic Respiratory: Normal respiratory effort, CTAB, on 2L NC postop and saturating in upper 90s Cardiovascular: RRR, no murmur Abdomen/GI: Normal bowel sounds, soft, nontender to palpation in all quadrants Extremities/Musculoskeletal: LLE surgical bandaging C/D/I, ice pack overlying L hip region Neurologic: No overt focal deficits Results & Data Results & Data Vital Signs (Past 12 Hours) Vital Signs Temp Pulse Resp BP Pulse Ox O2 Del Method 06/20/25 06:43 36.8 C 66 18 148/68 H 97 Room Air 06/19/25 22:29 36.7 C 69 16 123/74 98 Room Air Laboratory Results Short CBC 06/19/25 06/20/25 Range/Units 15:30 05:34 WBC 20.60 H 8.53 D (4.8-10.8) K/ul Hgb 11.7 L 11.0 L (12.0-16.0) g/dL Hct 35.6 L 34.4 L (37.0-47.0) % Plt Count 281 255 (130-400) K/uL BMP 06/19/25 06/20/25 15:30 05:34 Sodium 138 138 Potassium 3.5 3.8 Chloride 108 H 106 Carbon Dioxide 24 24 BUN 14 15 Creatinine 0.74 0.81 Glucose 126 H 114 H Calcium 8.8 8.8 Liver Function 06/19/25 Range/Units 15:30 Total Bilirubin 0.6 (0.2-1.0) mg/dl AST 12 L (13-39) U/L ALT 9 (7-52) U/L Alkaline Phosphatase 89 (34-104) U/L Albumin 3.7 (3.4-5.0) gm/dl Diagnostic Findings Hip/Pelvis X-Ray 06/19/25 13:39 EXAM: Radiographs of the Left Hip 3 Views INDICATION: Fall TECHNIQUE: AP view of the pelvis and AP and crosstable lateral views of the left hip obtained. COMPARISON: No relevant prior studies available. FINDINGS: Limitations: None. Bones/joints: There is a comminuted intertrochanteric fracture of the left femur with about 45 degrees angulation. No dislocation. Soft tissues: No abnormality noted. No radiopaque foreign body noted. IMPRESSION: Angulated comminuted intertrochanteric fracture of the left femur. ACT 112: N/A Electronically signed by Negrita Avendano 06-19-2025 3:20 PM Chest X-Ray 06/19/25 13:41 EXAM: Radiograph of the Chest 1 View INDICATION: Fall. TECHNIQUE: Frontal view of the chest. COMPARISON: 02/02/2021 FINDINGS: Lungs and pleural spaces: No consolidation or pulmonary edema. No pleural effusion or pneumothorax. Heart: Stable enlarged cardiac shadow. Mediastinum: Normal contour. Bones/joints: No fracture, erosion or dislocation. Soft tissues: No abnormality noted. No radiopaque foreign body noted. Upper abdomen: No abnormality noted. IMPRESSION: No acute cardiopulmonary disease. ACT 112: N/A Electronically signed by Negrita Avendano 06-19-2025 3:18 PM
--- NOTE | 2025-06-20 08:50 | Operative Report ---
PG Post Operative Report Pre & Post Diagnosis Operation Date: 06/20/25 07:00 Pre-Op Diagnosis: Fracture, intertrochanteric, left femur Post-Op Diagnosis: Fracture, intertrochanteric, left femur I identified the patient and participated in the time-out.: Yes Procedure Operation Date: 06/20/25 07:00 Actual Procedures p Left Femur IntraMedullary Nailing(Left) - Matthew Kaplan MD Surgeon Matthew Kaplan MD Assistant Grocery Store Manager Petr Parsons PA-C Estimated Blood Loss 100 Findings Consistent with Post-Op Diagnosis Specimens None Anesthesia Type General Complications none Disposition Accompanied Patient To Recovery: No Indications The patient is a 70-year-old female who sustained a mechanical fall yesterday. She was apparently trying to adjust some blinds when she lost her balance and fell and injured her left hip. Acute onset of pain. Brought to emergency room where x-rays revealed a left intertrochanteric hip fracture. The patient was admitted by the medicine service, medically optimized and indicated for surgical repair. Description of Procedure Operative implants consist of: 1 Synthes left 10 mm x 340 mm long trochanteric nail. 2. 90 mm helical blade. 3. 5.0 x 44 mm distal interlocking screw. The patient was taken to the op room, identified, placed on the operating table in the supine position. All contact areas were appropriately padded. IV antibiotics and 1 g of TXA was given by the anesthesia team. General anesthetic was implemented. The patient was then placed on the fracture table. The left leg was placed in boot traction of the right leg was placed in a well-leg lane. Applied some longitudinal traction to the left leg and internally rotated foot so the kneecap pointed to the ceiling. Some x-ray were obtained and the fracture was nearly anatomically aligned. The left hip was then scrubbed with Hibiclens, prepped with ChloraPrep and draped in usual sterile fashion. A curvilinear incision was made just proximal to the tip of the trochanter and in line with the IM canal. Sharp dissection scalp through subcutaneous tissue down to the level gluteal fascia. There was a very thick soft tissue envelope. Incision was made in the gluteal fascia. A guidewire was then placed just on the lateral tip of the trochanter and in line with the IM canal and advanced down the IM canal. This was verified fluoroscopically and then overreamed with a large reamer. This guidewire was then exchanged for the a ball-tipped guidewire which was placed down the canal. We measured for nail length and a 340 mm nail was selected. I then overreamed the guidewire with an 11 mm reamer which got pretty good chatter followed by the . A 10 mm x 340 mm long trochanteric nail was then placed over the guidewire. Was tapped into position. The lateral aiming arm was attached and advanced through a stab incision to the lateral aspect of femur. Guidewire was placed and central aspect of femoral head neck in both the AP and lateral planes. This was measured and a 90 mm helical blade was selected. The cortical drill and the triple reamer were then set then used to ream the path for the blade. The helical blade was then tapped into position. We tightened this proximally and then backed it off a little bit. I did apply compression to the fracture site. Some final x-rays were obtained. Attention then drawn toward distal interlocking. Using the perfect nooksack technique a distal interlocking screw was placed in the dynamic portion of the nail. A stab incision was made and the drill was used in a 44 mm distal interlocking screw was placed. Some final x-rays were obtained. Attention jointer closing. All wounds were irrigated extensively. I did inject locally with 30 cc of half percent Marcaine with epinephrine. The gluteal fascia was then closed with #2 Vicryl suture in a running fashion. The subcutaneous tissues were then closed in 3 layers with the 2 deep layers #2 Vicryl suture in the subcutaneous tissues with 2-0 Dexon suture in a buried interrupted fashion. Skin was then closed with skin mariely. Leg was then cleaned and dried and a sterile dressing composed of Xeroform, 4 x 4's, ABD pad, Medipore tape was applied. The patient was then taken off the fracture table, brought out of general esthesia and transferred to the recovery room in stable condition. The patient tolerated the procedure well and there were no complications. Petr Parsons, my physician veterinary assistant technician, was present for the entire procedure. His assistance was required for proper patient positioning, prepping and draping, surgical exposure, retraction, performed the technical details of the operation, placement of the implant, closure of the incision site, placement of postoperative sterile bandage. I attest to the content of the Intraoperative Record and any orders documented therein. Any exceptions are noted below.
[2025-06-20] MEDS: ASPIRIN 81 MG ECTAB PO SCH (09:52)
[2025-06-20] MEDS: diphenhydrAMINE 50 MG/ML VIAL IV STA (10:09)
[2025-06-20] MEDS: FAMOTIDINE/PF 20 MG/2 ML VIAL IV ONE (10:22)
--- NOTE | 2025-06-20 11:13 | Anesthesiology Progress Note ---
Date of Service June 20, 2025 Anesthesia Post Procedure Vital Signs Vital Signs: Temp Pulse Pulse Pulse Resp BP BP 06/20/25 10:04 36.3 C L 66 16 06/20/25 09:40 36.6 C 75 18 137/90 06/20/25 09:15 36.5 C 70 12 138/67 06/20/25 09:05 76 12 127/88 06/20/25 08:55 76 12 154/82 H 06/20/25 08:46 36.1 C L 80 12 168/81 H 06/20/25 08:40 06/20/25 06:43 36.8 C 66 18 148/68 H 06/19/25 22:29 36.7 C 69 16 123/74 06/19/25 17:58 36.5 C 71 18 120/70 06/19/25 15:48 72 18 161/75 H 06/19/25 13:30 36.4 C L 65 16 144/78 H BP Pulse Ox O2 Del Method O2 Flow Rate 06/20/25 10:04 118/76 99 Nasal Cannula 2 06/20/25 09:40 99 Nasal Cannula 2 06/20/25 09:15 99 Nasal Cannula 2 06/20/25 09:05 97 Nasal Cannula 2 06/20/25 08:55 97 Oxymask 3 06/20/25 08:46 100 Oxymask 6 06/20/25 08:40 Room Air 06/20/25 06:43 97 Room Air 06/19/25 22:29 98 Room Air 06/19/25 17:58 97 Room Air 06/19/25 15:48 97 Room Air 06/19/25 13:30 99 Room Air Pain Intensity Left Leg: Pain Intensity: 7 Left Hip: Pain Intensity: 2 Transfer of Care Handoff Completed per policy Notes Mental Status: alert / awake / arousable and participated in evaluation Patient Amnestic to Procedure: Yes Nausea / Vomiting: adequately controlled Pain: adequately controlled Airway Patency, RR, SpO2: stable & adequate BP & HR: stable & adequate Hydration State: stable & adequate Anesthetic Complications: no major complications apparent and Pt Satisfied with anesthetic care
--- NOTE | 2025-06-20 13:47 | Electrocardiogram Report ---
Test Reason : Blood Pressure : */* mmHG Vent. Rate : 67 BPM Atrial Rate : 67 BPM P-R Int : 150 ms QRS Dur : 88 ms QT Int : 422 ms P-R-T Axes : 52 35 60 degrees QTcB Int : 445 ms Normal sinus rhythm T wave abnormality, consider anterior ischemia Abnormal ECG When compared with ECG of 02-Feb-2021 00:12, Nonspecific T wave abnormality no longer evident in Inferior leads T wave inversion more evident in Anterior leads Confirmed by Timothy Green ([id number] on 06/20/2025 1:46:45 PM Referred By: REFERRED SELF Confirmed By: Timothy Green
--- NOTE | 2025-06-20 15:07 | Fluoroscopy Report ---
FL femur LT 2V CLINICAL HISTORY: LEFT TROCHNAIL COMPARISON STUDY: 06/19/2025 FLUOROSCOPY TIME: 1 minute 15 seconds FLUOROSCOPY IMAGES: 4 EXPOSURE DOSE: 24 mGy FINDINGS: Fluoroscopy was provided for left femoral gamma nail. IMPRESSION: Intraoperative fluoroscopy. ACT 112: Negative or not required by law. Electronically signed by: Deo Macias M.D. 06/20/2025 3:06 PM
[2025-06-20] MEDS ORDERED: ENOXAPARIN INJ 40 MG/0.4 ML SYR SQ SCH (18:00)
[2025-06-21 08:10] LABS: Hematocrit (blood only) 30.3 % (37.0-47.0); Hemoglobin 9.7 g/dL (12.0-16.0); Immature Granulocytes # (auto) 0.08 K/uL (0.01-0.20); Immature Granulocytes % (auto) 0.5 %; Mean Corpuscular Hemoglobin 28.5 pg (25.0-34.0); Mean Corpuscular Volume 89.1 fL (80.0-100.0); Platelet Count 235 K/uL (130-400); RDW Standard Deviation 43.2 fL (36.4-46.3); Red Blood Count 3.40 M/uL (4.20-5.40); White Blood Count 15.28 K/ul (4.8-10.8)
[2025-06-21 08:26] LABS: Anion Gap 7.0 (3-11); Blood Urea Nitrogen 23.0 mg/dl (6-23); Calcium 8.8 mg/dl (8.6-10.3); Carbon Dioxide 25.0 mmol/L (21-32); Chloride 104.0 mmol/L (98-107); Creatinine Clr Calc Pharmacy 49.4 ml/min; Glucose 123.0 mg/dl (70-99(Fasting)); Magnesium 2.1 mg/dl (1.7-2.4); Potassium 4.1 mmol/L (3.5-5.1); Sodium 136.0 mmol/L (136-145)
[2025-06-21] MEDS: ERGOCALCIFEROL 1250 MCG (50,000 UNITS) CAP PO SCH (09:18)
[2025-06-21 11:21] LABS: Prealbumin 12.5 mg/dl (20-40)
[2025-06-21] MEDS: POLYETHYLENE (MIRALAX) 17 GM PACK PO SCH (12:00)
--- NOTE | 2025-06-21 13:54 | Orthopedic Progress Note ---
Date of Service June 21, 2025 Assessment & Plan (1) Fracture, intertrochanteric, left femur: Plan: POD #1 s/p ORIF L hip fracture WBAT with walker. Continue pain control Continue DVT prophylaxis. PT/OT D/c planning. Continue care per primary service. Dr. Abbott covering for Dr. Kaplan Present on Admission?: Yes Admission and Anticipated Discharge Date Admission Date: June 19, 2025 Subjective c/o left hip pain Physical Exam Physical Exam: LLE: Sensation to light touch intact distally. BCR< 2 sec. Able to wiggle toes and ankle. Calf soft & non-tender. Dressings clean, dry, intact. Results & Data Vital Signs (Past 12 Hours) Vital Signs Temp Pulse Pulse Resp BP BP Pulse Ox 06/21/25 07:21 36.5 C 76 18 130/74 95 06/21/25 04:10 36.7 C 72 16 145/79 H 95 O2 Del Method 06/21/25 07:21 Room Air 06/21/25 04:10 Room Air Laboratory Results Laboratory Results WBC 15.28 K/ul (4.8-10.8) H 06/21/25 07:48 RBC 3.40 M/uL (4.20-5.40) L 06/21/25 07:48 Hgb 9.7 g/dL (12.0-16.0) L 06/21/25 07:48 Hct 30.3 % (37.0-47.0) L 06/21/25 07:48 MCV 89.1 fL (80.0-100.0) 06/21/25 07:48 MCH 28.5 pg (25.0-34.0) 06/21/25 07:48 MCHC 32.0 g/dL (32.0-36.0) 06/21/25 07:48 RDW Std Deviation 43.2 fL (36.4-46.3) 06/21/25 07:48 RDW Coeff of Dalila 13.2 % (11.5-14.5) 06/21/25 07:48 Plt Count 235 K/uL (130-400) 06/21/25 07:48 MPV 9.4 fL (9.4-12.4) 06/21/25 07:48 Immature Gran % (Auto) 0.5 % 06/21/25 07:48 Neut % (Auto) 74.8 % 06/21/25 07:48 Lymph % (Auto) 13.7 % 06/21/25 07:48 [place] % (Auto) 10.9 % 06/21/25 07:48 Eos % (Auto) 0.0 % 06/21/25 07:48 Baso % (Auto) 0.1 % 06/21/25 07:48 Neut # (Auto) 11.42 K/uL (1.40-6.50) H 06/21/25 07:48 Lymph # (Auto) 2.09 K/uL (1.20-3.40) 06/21/25 07:48 [place] # (Auto) 1.67 K/uL (0.11-0.59) H 06/21/25 07:48 Eos # (Auto) 0.00 K/uL (0.00-0.50) 06/21/25 07:48 Baso # (Auto) 0.02 K/uL (0.00-0.20) 06/21/25 07:48 Immature Gran # (Auto) 0.08 K/uL (0.01-0.20) 06/21/25 07:48 Sodium 136 mmol/L (136-145) 06/21/25 07:48 Potassium 4.1 mmol/L (3.5-5.1) 06/21/25 07:48 Chloride 104 mmol/L (98-107) 06/21/25 07:48 Carbon Dioxide 25 mmol/L (21-32) 06/21/25 07:48 Anion Gap 7 (3-11) 06/21/25 07:48 BUN 23 mg/dl (6-23) 06/21/25 07:48 Creatinine 1.14 mg/dl (0.6-1.2) D 06/21/25 07:48 Est Cr Clr Drug Dosing 49.4 ml/min 06/21/25 07:48 eGFR 52.44 06/21/25 07:48 BUN/Creatinine Ratio 20.2 (10-20) H 06/21/25 07:48 Glucose 123 mg/dl (70-99(Fasting)) H 06/21/25 07:48 Calcium 8.8 mg/dl (8.6-10.3) 06/21/25 07:48 Magnesium 2.1 mg/dl (1.7-2.4) 06/21/25 07:48 Total Bilirubin 0.6 mg/dl (0.2-1.0) 06/19/25 15:30 AST 12 U/L (13-39) L 06/19/25 15:30 ALT 9 U/L (7-52) 06/19/25 15:30 Alkaline Phosphatase 89 U/L (34-104) 06/19/25 15:30 Total Protein 5.9 gm/dl (6.0-8.3) L 06/19/25 15:30 Albumin 3.7 gm/dl (3.4-5.0) 06/19/25 15:30 Globulin 2.2 gm/dl (2.5-4.0) L 06/19/25 15:30 Albumin/Globulin Ratio 1.7 (0.9-2) 06/19/25 15:30 Prealbumin 12.5 mg/dl (20-40) L 06/21/25 07:48 25-OH Vitamin D Total 11.2 ng/ml (30-100) L 06/21/25 07:49 Blood Type O Positive 06/19/25 17:28 Antibody Screen NEGATIVE 06/19/25 17:28 Impressions Hip/Pelvis X-Ray 06/19/25 13:39 EXAM: Radiographs of the Left Hip 3 Views INDICATION: Fall TECHNIQUE: AP view of the pelvis and AP and crosstable lateral views of the left hip obtained. COMPARISON: No relevant prior studies available. FINDINGS: Limitations: None. Bones/joints: There is a comminuted intertrochanteric fracture of the left femur with about 45 degrees angulation. No dislocation. Soft tissues: No abnormality noted. No radiopaque foreign body noted. IMPRESSION: Angulated comminuted intertrochanteric fracture of the left femur. ACT 112: N/A Electronically signed by Negrita Avendano 06-19-2025 3:20 PM Chest X-Ray 06/19/25 13:41 EXAM: Radiograph of the Chest 1 View INDICATION: Fall. TECHNIQUE: Frontal view of the chest. COMPARISON: 02/02/2021 FINDINGS: Lungs and pleural spaces: No consolidation or pulmonary edema. No pleural effusion or pneumothorax. Heart: Stable enlarged cardiac shadow. Mediastinum: Normal contour. Bones/joints: No fracture, erosion or dislocation. Soft tissues: No abnormality noted. No radiopaque foreign body noted. Upper abdomen: No abnormality noted. IMPRESSION: No acute cardiopulmonary disease. ACT 112: N/A Electronically signed by Negrita Avendano 06-19-2025 3:18 PM Femur X-Ray 06/20/25 06:50 FL femur LT 2V CLINICAL HISTORY: LEFT TROCHNAIL COMPARISON STUDY: 06/19/2025 FLUOROSCOPY TIME: 1 minute 15 seconds FLUOROSCOPY IMAGES: 4 EXPOSURE DOSE: 24 mGy FINDINGS: Fluoroscopy was provided for left femoral gamma nail. IMPRESSION: Intraoperative fluoroscopy. ACT 112: Negative or not required by law. Electronically signed by: Deo Macias M.D. 06/20/2025 3:06 PM
--- NOTE | 2025-06-21 15:32 | Hospitalist Progress Note ---
Date of Service June 21, 2025 Assessment & Plan (1) Fracture, intertrochanteric, left femur: (2) Fall from standing: (3) Leukocytosis: Plan Patient is a 70y/o F with PMHx significant for asthma, allergic rhinitis, venous insufficiency, HTN, nocturnal leg cramps, obesity, adjustment disorder with anxious mood, HLD and h/o renal stones who presented to the ED on 06/19/25 with c/o L hip pain s/p mechanical fall and was found to have an intertrochanteric fracture of the L femur. Acute angulated comminuted intertrochanteric fracture of the L femur s/p mechanical fall S/p L femur intramedullary nailing performed by Dr. Kaplan on 06/20/25 Acute blood loss anemia due to above Continue PRN analgesia, wound care Activities as per ortho ASA 81mg BID for DVT prophylaxis as per ortho Appreciate PT/OT evals--needs rehab placement Monitor H&H, no indication for blood transfusion currently Continue bowel regimen to prevent constipation Continue PT OT, fall precautions while hospitalized Plan to discharge to rehab facility when accepted Leukocytosis POA Likely reactive CXR negative monitor DVT Px: ASA BID as per ortho Code Status: FULL CODE PCP: Cece Sheridan MD Disposition: Plan to discharge to rehab as able Admission and Anticipated Discharge Date Admission Date: June 19, 2025 Subjective Patient is seen and examined at bedside Sitting in chair during my encounter Admits to having left hip pain especially with activity Nausea overnight but resolved currently +flatus Denies any chest pain, dyspnea, dizziness Review of Systems Review of Systems: All systems reviewed & are unremarkable except as noted in Subjective Physical Exam Physical Exam: Physical Exam: Vitals signs as noted above General Appearance:Moderately built and nourished, no apparent distress Head: normocephalic, Atraumatic Eyes: normal inspection, EOMI Neck: supple, Trachea midline Respiratory/Chest: Normal breath sounds, CTA, No accessory muscle use Cardiovascular: S1, S2, No murmur Abdomen/GI:Soft, Non tender, Bowel sounds present Extremities/Musculoskeletal:normal inspection, no edema, + left hip surgical site in dressing Neurologic/Psych:AAOX3, grossly no focal neurological deficits Skin: normal color, warm Results & Data Results & Data Vital Signs (Past 12 Hours) Vital Signs Temp Pulse Pulse Resp BP BP Pulse Ox 06/21/25 07:21 36.5 C 76 18 130/74 95 06/21/25 04:10 36.7 C 72 16 145/79 H 95 O2 Del Method 06/21/25 07:21 Room Air 06/21/25 04:10 Room Air Laboratory Results Short CBC 06/21/25 Range/Units 07:48 WBC 15.28 H (4.8-10.8) K/ul Hgb 9.7 L (12.0-16.0) g/dL Hct 30.3 L (37.0-47.0) % Plt Count 235 (130-400) K/uL BMP 06/21/25 07:48 Sodium 136 Potassium 4.1 Chloride 104 Carbon Dioxide 25 BUN 23 Creatinine 1.14 D Glucose 123 H Calcium 8.8
[2025-06-21] MEDS: POLYETHYLENE (MIRALAX) 17 GM PACK PO PRN (16:56)
[2025-06-22 06:13] LABS: Hematocrit (blood only) 28.1 % (37.0-47.0); Hemoglobin 8.9 g/dL (12.0-16.0); Mean Corpuscular Hemoglobin 28.5 pg (25.0-34.0); Mean Corpuscular Volume 90.1 fL (80.0-100.0); Platelet Count 234 K/uL (130-400); RDW Standard Deviation 43.6 fL (36.4-46.3); Red Blood Count 3.12 M/uL (4.20-5.40); White Blood Count 11.56 K/ul (4.8-10.8)
[2025-06-22 06:37] LABS: Anion Gap 8.0 (3-11); Blood Urea Nitrogen 35.0 mg/dl (6-23); Calcium 8.6 mg/dl (8.6-10.3); Carbon Dioxide 23.0 mmol/L (21-32); Chloride 102.0 mmol/L (98-107); Creatinine Clr Calc Pharmacy 27.7 ml/min; Glucose 109.0 mg/dl (70-99(Fasting)); Potassium 4.1 mmol/L (3.5-5.1); Sodium 133.0 mmol/L (136-145)
[2025-06-22] MEDS: LOSARTAN POTASSIUM 25 MG TAB PO SCH (07:30)
[2025-06-22] MEDS: ATORVASTATIN 20 MG TAB PO SCH (07:30)
--- NOTE | 2025-06-22 08:38 | Hospitalist Progress Note ---
Date of Service June 22, 2025 Assessment & Plan (1) Fracture, intertrochanteric, left femur: (2) Fall from standing: (3) Leukocytosis: (4) Acute blood loss anemia: (5) IMELDA (acute kidney injury): (6) Hypertension: (7) Hyperlipidemia: (8) Vitamin D deficiency: Plan Patient is a 70y/o F with PMHx significant for asthma, allergic rhinitis, venous insufficiency, HTN, nocturnal leg cramps, obesity, adjustment disorder with anxious mood, HLD and h/o renal stones who presented to the ED on 06/19/25 with c/o L hip pain s/p mechanical fall and was found to have an intertrochanteric fracture of the L femur. Acute angulated comminuted intertrochanteric fracture of the L femur s/p mechanical fall POD#2 L femur intramedullary nailing performed by Dr. Kaplan on 06/20/25 WBAT as per ortho ASA 81mg BID for DVT prophylaxis as per ortho Continue pain control, bowel regimen, wound care, falls precautions PT/OT evals recommending rehab Plan to discharge to rehab facility when accepted, CM following Acute blood loss anemia Hgb 11.7-> 8.9 today EBL 100cc Asymptomatic Monitor and transfuse if needed IMELDA Creat 2.03 today Likely secondary to dehydration Start IVF Recheck in am Hypertension Hold losartan due to soft BPs and IMELDA as above Monitor BPs Leukocytosis POA Likely reactive, downtrending CXR negative and no s/s of infection Vitamin D deficiency Vit D 11.2 Start ergocalciferol x6 weeks Follow up outpatient Hyperlipidemia Continue statin DVT Prophylaxis: ASA bid per ortho Code Status: FULL CODE PCP: Cece Sheridan MD Disposition: rehab when accepted/bed available Patient seen in collaboration with Dr. Hull. Please see addendum. I spent a total of 60 minutes coordinating, documenting and providing care for this patient excluding time spent in the performance of separately billed services or time spent by another provider/QHP. Admission and Anticipated Discharge Date Admission Date: June 19, 2025 Supervising Physician Co-Signing Physician Notes Patient is seen and examined at bedside. Sitting in chair during my encounter. Left hip at surgical site is controlled. Had bowel movement. Denies any chest pain, dyspnea, dizziness. No other specific complaints. Noted rising creatinine levels. On exam patient is obese, no apparent distress, normocephalic atraumatic, EOMI, normal breath sounds, clear to auscultation, S1-S2, no murmur, abdomen soft, nontender, left hip surgical site in dressing, no pedal edema, unable to perform complete neurological exam. Patient is currently being managed for left femur fracture s/p left femur intramedullary nailing by Dr. Kaplan today. Postoperative acute blood loss anemia. No indication for blood transfusion currently. Noted acute kidney injury. Avoid nephrotoxic agents as able. Continue IV fluids and monitor for any urinary retention. Agree with vitamin D supplements for vitamin D deficiency. Hold losartan as blood pressure relatively low. Continue PT OT. Plan to discharge to rehab facility as able. I personally interviewed and examined the patient at bedside. I have reviewed the advanced practitioner's documentation on the date of service referred in note and agree with plan. Patient's care is coordinated with Kell JOE. Please refer to the documentation above for details of patient's presentation and for discussion of other issues. I spent a total [id number] coordinating, documenting, and providing care for this patient excluding time spent in the performance of separately billed services or time spent by another provider/QHP. Subjective Patient seen sitting up in chair Reports no pain if resting but pain in left hip with movement Denies dizziness, chest pain, SOB, abdominal pain, N/V/D No bowel movement yet but was passing gas yesterday Review of Systems Review of Systems: All systems reviewed & are unremarkable except as noted in HPI & below Physical Exam Physical Exam: General/Psych: WD/WN, sitting up in bed, NAD, conversing easily Head: normocephalic, atraumatic Eyes: normal inspection, PERRL, conjunctivae pink Neck: normal visual inspection, trachea midline Respiratory: normal respiratory effort, lungs clear to auscultation, no wheeze/rales/rhonchi, no accessory muscle use Cardiovascular: regular rate and rhythm, no murmur/rub/gallop Extremities: no cyanosis or clubbing, normal peripheral pulses, no BLE edema, sensation intact BLE Abdomen/GI: normal bowel sounds, soft, nontender Neurologic/MSK: A+Ox3, motor strength 5/5, moves all extremities Skin: no rashes, normal color, warm and dry, left hip dressing c/d/i Results & Data Results & Data Vital Signs (Past 12 Hours) Vital Signs Temp Pulse Resp BP Pulse Ox O2 Del Method 06/22/25 07:56 36.7 C 75 16 101/67 94 Room Air Laboratory Results Short CBC 06/22/25 Range/Units 05:20 WBC 11.56 H (4.8-10.8) K/ul Hgb 8.9 L (12.0-16.0) g/dL Hct 28.1 L (37.0-47.0) % Plt Count 234 (130-400) K/uL BMP 06/22/25 05:20 Sodium 133 L Potassium 4.1 Chloride 102 Carbon Dioxide 23 BUN 35 H Creatinine 2.03 H D Glucose 109 H Calcium 8.6 I have independently reviewed and interpreted patient's labs including CBC and BMP. Medications Administered Current Inpatient Medications Al Hydrox/Mg Hydrox/Simethicone (Aluminum/Magnesium Susp 30 Ml Udc) 30 ml PO Q6H PRN PRN Reason: Dyspepsia Stop: 07/19/25 17:56 Albuterol (Albuterol Hfa 8 Gm Inhaler) 2 puffs INH Q4H PRN PRN Reason: Shortness of Breath Stop: 07/19/25 17:56 Aspirin (Aspirin 81 Mg Ectab) 81 mg PO BID [facility] Stop: 07/20/25 09:29 Last Admin: 06/22/25 07:30 Dose: 81 mg Atorvastatin Calcium (Atorvastatin 20 Mg Tab) 20 mg PO DAILY [facility] Stop: 07/22/25 08:59 Last Admin: 06/22/25 07:30 Dose: 20 mg Diphenhydramine HCl (Diphenhydramine Hcl 25 Mg/10 Ml Udc) 12.5 mg PO Q6H PRN PRN Reason: Allergic Symptoms Stop: 07/21/25 16:53 Last Admin: 06/21/25 17:09 Dose: 12.5 mg Ergocalciferol (Ergocalciferol 1250 Mcg (50,000 Units) Cap) 1,250 mcg PO Q7D@0900 [facility] Stop: 07/26/25 09:01 Last Admin: 06/21/25 09:18 Dose: 1,250 mcg Sodium Chloride (Nss) 1,000 mls @ 80 mls/hr IV .[id number] [facility] Stop: 06/23/25 10:14 Last Admin: 06/22/25 09:28 Dose: 80 mls/hr Lorazepam (Lorazepam 0.5 Mg Tab) 0.5 mg PO Q8H PRN PRN Reason: Anxiety/discomfort Stop: 07/19/25 18:32 Last Admin: 06/19/25 18:37 Dose: 0.5 mg Losartan Potassium (Losartan Potassium 25 Mg Tab) 25 mg PO QAM ORIANA Stop: 07/22/25 08:59 Last Admin: 06/22/25 07:30 Dose: 25 mg Melatonin (Melatonin 3 Mg Tab) 3 mg PO HS PRN PRN Reason: Insomnia Stop: 07/19/25 17:56 Ondansetron HCl (Ondansetron Inj 2 Mg/Ml 2 Ml Vial) 4 mg IV Q6H PRN PRN Reason: Nausea Stop: 07/19/25 17:56 Last Admin: 06/19/25 19:26 Dose: 4 mg Oxycodone HCl (Oxycodone Hcl Ir 5 Mg Tab (Immediate Release)) 5 mg PO Q3H PRN PRN Reason: Moderate Pain (Scale 4, 5, 6) Stop: 07/03/25 17:56 Last Admin: 06/19/25 21:07 Dose: 5 mg Oxycodone HCl (Oxycodone Hcl Ir 5 Mg Tab (Immediate Release)) 10 mg PO Q3H PRN PRN Reason: Severe Pain (Scale 7, 8, 9,10) Stop: 07/06/25 13:41 Pantoprazole Sodium (Pantoprazole 40 Mg Tab) 40 mg PO DAILY [facility] Stop: 07/22/25 08:59 Last Admin: 06/22/25 07:30 Dose: 40 mg Polyethylene Glycol (Polyethylene (Miralax) 17 Gm Pack) 17 gm PO DAILY PRN PRN Reason: Constipation Stop: 07/19/25 17:56 Last Admin: 06/21/25 16:56 Dose: 17 gm Polyethylene Glycol (Polyethylene (Miralax) 17 Gm Pack) 17 gm PO Q6 ORIANA Stop: 07/22/25 11:59 Last Admin: 06/22/25 12:19 Dose: 17 gm
--- NOTE | 2025-06-22 08:56 | Orthopedic Progress Note ---
Date of Service June 22, 2025 Assessment & Plan (1) Fracture, intertrochanteric, left femur: Plan: POD #1 s/p ORIF L hip fracture WBAT with walker. Continue pain control Continue DVT prophylaxis. PT/OT D/c planning. Continue care per primary service. F/U Dr. Kaplan's office in 2-[address] Abbott covering for Dr. Kaplan Admission and Anticipated Discharge Date Admission Date: June 19, 2025 Subjective c/o left hip pain Physical Exam Physical Exam: LLE: Sensation to light touch intact distally. BCR< 2 sec. Able to wiggle toes and ankle. Calf soft & non-tender. Dressings clean, dry, intact. Results & Data Vital Signs (Past 12 Hours) Vital Signs Temp Pulse Resp BP Pulse Ox O2 Del Method 06/22/25 07:56 36.7 C 75 16 101/67 94 Room Air Laboratory Results Laboratory Results WBC 11.56 K/ul (4.8-10.8) H 06/22/25 05:20 RBC 3.12 M/uL (4.20-5.40) L 06/22/25 05:20 Hgb 8.9 g/dL (12.0-16.0) L 06/22/25 05:20 Hct 28.1 % (37.0-47.0) L 06/22/25 05:20 MCV 90.1 fL (80.0-100.0) 06/22/25 05:20 MCH 28.5 pg (25.0-34.0) 06/22/25 05:20 MCHC 31.7 g/dL (32.0-36.0) L 06/22/25 05:20 RDW Std Deviation 43.6 fL (36.4-46.3) 06/22/25 05:20 RDW Coeff of Dalila 13.3 % (11.5-14.5) 06/22/25 05:20 Plt Count 234 K/uL (130-400) 06/22/25 05:20 MPV 9.5 fL (9.4-12.4) 06/22/25 05:20 Immature Gran % (Auto) 0.5 % 06/21/25 07:48 Neut % (Auto) 74.8 % 06/21/25 07:48 Lymph % (Auto) 13.7 % 06/21/25 07:48 [place] % (Auto) 10.9 % 06/21/25 07:48 Eos % (Auto) 0.0 % 06/21/25 07:48 Baso % (Auto) 0.1 % 06/21/25 07:48 Neut # (Auto) 11.42 K/uL (1.40-6.50) H 06/21/25 07:48 Lymph # (Auto) 2.09 K/uL (1.20-3.40) 06/21/25 07:48 [place] # (Auto) 1.67 K/uL (0.11-0.59) H 06/21/25 07:48 Eos # (Auto) 0.00 K/uL (0.00-0.50) 06/21/25 07:48 Baso # (Auto) 0.02 K/uL (0.00-0.20) 06/21/25 07:48 Immature Gran # (Auto) 0.08 K/uL (0.01-0.20) 06/21/25 07:48 Sodium 133 mmol/L (136-145) L 06/22/25 05:20 Potassium 4.1 mmol/L (3.5-5.1) 06/22/25 05:20 Chloride 102 mmol/L (98-107) 06/22/25 05:20 Carbon Dioxide 23 mmol/L (21-32) 06/22/25 05:20 Anion Gap 8 (3-11) 06/22/25 05:20 BUN 35 mg/dl (6-23) H 06/22/25 05:20 Creatinine 2.03 mg/dl (0.6-1.2) H D 06/22/25 05:20 Est Cr Clr Drug Dosing 27.7 ml/min 06/22/25 05:20 eGFR 26.24 06/22/25 05:20 BUN/Creatinine Ratio 17.2 (10-20) 06/22/25 05:20 Glucose 109 mg/dl (70-99(Fasting)) H 06/22/25 05:20 Calcium 8.6 mg/dl (8.6-10.3) 06/22/25 05:20 Magnesium 2.1 mg/dl (1.7-2.4) 06/21/25 07:48 Total Bilirubin 0.6 mg/dl (0.2-1.0) 06/19/25 15:30 AST 12 U/L (13-39) L 06/19/25 15:30 ALT 9 U/L (7-52) 06/19/25 15:30 Alkaline Phosphatase 89 U/L (34-104) 06/19/25 15:30 Total Protein 5.9 gm/dl (6.0-8.3) L 06/19/25 15:30 Albumin 3.7 gm/dl (3.4-5.0) 06/19/25 15:30 Globulin 2.2 gm/dl (2.5-4.0) L 06/19/25 15:30 Albumin/Globulin Ratio 1.7 (0.9-2) 06/19/25 15:30 Prealbumin 12.5 mg/dl (20-40) L 06/21/25 07:48 25-OH Vitamin D Total 11.2 ng/ml (30-100) L 06/21/25 07:49 Blood Type O Positive 06/19/25 17:28 Antibody Screen NEGATIVE 06/19/25 17:28 Impressions Hip/Pelvis X-Ray 06/19/25 13:39 EXAM: Radiographs of the Left Hip 3 Views INDICATION: Fall TECHNIQUE: AP view of the pelvis and AP and crosstable lateral views of the left hip obtained. COMPARISON: No relevant prior studies available. FINDINGS: Limitations: None. Bones/joints: There is a comminuted intertrochanteric fracture of the left femur with about 45 degrees angulation. No dislocation. Soft tissues: No abnormality noted. No radiopaque foreign body noted. IMPRESSION: Angulated comminuted intertrochanteric fracture of the left femur. ACT 112: N/A Electronically signed by Negrita Avendano 06-19-2025 3:20 PM Chest X-Ray 06/19/25 13:41 EXAM: Radiograph of the Chest 1 View INDICATION: Fall. TECHNIQUE: Frontal view of the chest. COMPARISON: 02/02/2021 FINDINGS: Lungs and pleural spaces: No consolidation or pulmonary edema. No pleural effusion or pneumothorax. Heart: Stable enlarged cardiac shadow. Mediastinum: Normal contour. Bones/joints: No fracture, erosion or dislocation. Soft tissues: No abnormality noted. No radiopaque foreign body noted. Upper abdomen: No abnormality noted. IMPRESSION: No acute cardiopulmonary disease. ACT 112: N/A Electronically signed by Negrita Avendano 06-19-2025 3:18 PM Femur X-Ray 06/20/25 06:50 FL femur LT 2V CLINICAL HISTORY: LEFT TROCHNAIL COMPARISON STUDY: 06/19/2025 FLUOROSCOPY TIME: 1 minute 15 seconds FLUOROSCOPY IMAGES: 4 EXPOSURE DOSE: 24 mGy FINDINGS: Fluoroscopy was provided for left femoral gamma nail. IMPRESSION: Intraoperative fluoroscopy. ACT 112: Negative or not required by law. Electronically signed by: Deo Macias M.D. 06/20/2025 3:06 PM
[2025-06-22] MEDS: SODIUM CHLORIDE 0.9% 1,000 ML IV SCH (09:28)
[2025-06-22 19:59] VITALS: O2SAT 94
[2025-06-23 06:47] LABS: Hematocrit (blood only) 28.8 % (37.0-47.0); Hemoglobin 9.1 g/dL (12.0-16.0); Mean Corpuscular Hemoglobin 28.1 pg (25.0-34.0); Mean Corpuscular Volume 88.9 fL (80.0-100.0); Platelet Count 252 K/uL (130-400); RDW Standard Deviation 42.8 fL (36.4-46.3); Red Blood Count 3.24 M/uL (4.20-5.40); White Blood Count 10.27 K/ul (4.8-10.8)
[2025-06-23 07:09] LABS: Anion Gap 8.0 (3-11); Blood Urea Nitrogen 36.0 mg/dl (6-23); Calcium 8.8 mg/dl (8.6-10.3); Carbon Dioxide 23.0 mmol/L (21-32); Chloride 105.0 mmol/L (98-107); Creatinine Clr Calc Pharmacy 48.5 ml/min; Glucose 116.0 mg/dl (70-99(Fasting)); Potassium 4.0 mmol/L (3.5-5.1); Sodium 136.0 mmol/L (136-145)
--- NOTE | 2025-06-23 07:47 | Orthopedic Progress Note ---
Date of Service June 23, 2025 Assessment & Plan (1) Fracture, intertrochanteric, left femur: * Continue Current Treatment * S/p left TFN * Weight bearing status: WBAT * Daily treatment: Physical Therapy/ Occupational Therapy per protocol * Pain control * Continue to monitor for ABLA * DVT prophylaxis, ok to resume from ortho standpoint * Disposition: TBD * Office/hospital f/u 2 weeks for progress check and staple/suture removal * Remainder care per primary team * Stable for discharge from ortho standpoint, further planning per primary team Subjective . Active Problems: S/p left TFN POD 4 70 y/o female s/p left TFN. Doing well overall, pain managed and improved function. Denies fever/chills, chest pain/SOB, nausea/vomiting. Otherwise no complaints. Review of Systems All systems reviewed & are unremarkable except as noted in HPI & below. Physical Exam . * General: Alert and oriented, no acute distress * Constitutional: well-developed, well-nourished. * Respiratory: Normal respiratory effort, no distress * Gastrointestinal: No tenderness to palpation, no rigidity or guarding. * Skin: No rash or lesion. * Neurologic: Grossly normal * Musculoskeletal: left hip surgical dressing CDI, not removed for exam. Otherwise no obvious deformity or overlying skin changes. Diffuse TTP proximal thigh and hip region. Otherwise no specific tenderness of distal thigh, lower leg, foot/ankle. AROM hip flexion intact. AROM foot/ankle intact. Sensation intact plantar/dorsal foot. Brisk capillary refill. Results & Data Results & Data Laboratory Results . Diagnostic Findings . PG Care Time/CCT Total # of Minutes Spent Total Time Spent with Patient: Total time spent is greater than 50% in coordination of care (as documented) at patient's floor/unit and/or counseling patient: Coding Level of Care Code 75191 Post Operative Follow-Up Diagnoses Fracture, intertrochanteric, left femur S72.142A
--- NOTE | 2025-06-23 08:39 | Hospitalist Progress Note ---
Date of Service June 23, 2025 Assessment & Plan (1) Fracture, intertrochanteric, left femur: (2) Fall from standing: (3) Leukocytosis: (4) Acute blood loss anemia: (5) IMELDA (acute kidney injury): (6) Hypertension: (7) Hyperlipidemia: (8) Vitamin D deficiency: Plan Patient is a 70y/o F with PMHx significant for asthma, allergic rhinitis, venous insufficiency, HTN, nocturnal leg cramps, obesity, adjustment disorder with anxious mood, HLD and h/o renal stones who presented to the ED on 06/19/25 with c/o L hip pain s/p mechanical fall and was found to have an intertrochanteric fracture of the L femur. Acute angulated comminuted intertrochanteric fracture of the L femur s/p mechanical fall POD#3 L femur intramedullary nailing performed by Dr. Kaplan on 06/20/25 WBAT as per ortho ASA 81mg BID for DVT prophylaxis as per ortho Continue pain control, bowel regimen, wound care, falls precautions PT/OT evals recommending rehab Plan to discharge to rehab facility when accepted, CM following Acute blood loss anemia Hgb 11.7-> 9.1 today EBL 100cc Asymptomatic Monitor and transfuse if needed IMELDA-> resolved Creat 2.03-> 1.16 today Resolved with IVF Monitor renal function Hypertension Hold losartan due to soft BPs Monitor BPs Leukocytosis POA-> resolved Likely reactive CXR negative and no s/s of infection Vitamin D deficiency Vit D 11.2 Start ergocalciferol x6 weeks Follow up outpatient Hyperlipidemia Continue statin DVT Prophylaxis: ASA bid per ortho Code Status: FULL CODE PCP: Cece Sheridan MD Disposition: rehab when accepted/bed available Patient seen in collaboration with Dr. Hull. Please see addendum. I spent a total of 50 minutes coordinating, documenting and providing care for this patient excluding time spent in the performance of separately billed services or time spent by another provider/QHP. Admission and Anticipated Discharge Date Admission Date: June 19, 2025 Subjective Patient seen sitting up in chair More sleepy today Still no pain if resting but pain in left hip with movement Was able to ambulate more today than yesterday Denies dizziness, chest pain, SOB, abdominal pain, N/V/D Had a bowel movement last night Review of Systems Review of Systems: All systems reviewed & are unremarkable except as noted in HPI & below Physical Exam Physical Exam: General/Psych: WD/WN, sitting up in bed, NAD, conversing easily, sleepy Head: normocephalic, atraumatic Eyes: normal inspection, PERRL, conjunctivae pink Neck: normal visual inspection, trachea midline Respiratory: normal respiratory effort, lungs clear to auscultation, no wheeze/rales/rhonchi, no accessory muscle use Cardiovascular: regular rate and rhythm, no murmur/rub/gallop Extremities: no cyanosis or clubbing, normal peripheral pulses, no BLE edema, sensation intact BLE Abdomen/GI: normal bowel sounds, soft, nontender Neurologic/MSK: A+Ox3, motor strength 5/5, moves all extremities Skin: no rashes, normal color, warm and dry, left hip dressing c/d/i Results & Data Results & Data Vital Signs (Past 12 Hours) Vital Signs Temp Pulse Resp BP Pulse Ox O2 Del Method 06/23/25 08:08 36.7 C 78 16 105/67 94 Room Air Laboratory Results Short CBC 06/23/25 Range/Units 06:33 WBC 10.27 (4.8-10.8) K/ul Hgb 9.1 L (12.0-16.0) g/dL Hct 28.8 L (37.0-47.0) % Plt Count 252 (130-400) K/uL BMP 06/23/25 06:33 Sodium 136 Potassium 4.0 Chloride 105 Carbon Dioxide 23 BUN 36 H Creatinine 1.16 D Glucose 116 H Calcium 8.8 I have independently reviewed and interpreted patient's labs including CBC and BMP. Medications Administered Current Inpatient Medications Al Hydrox/Mg Hydrox/Simethicone (Aluminum/Magnesium Susp 30 Ml Udc) 30 ml PO Q6H PRN PRN Reason: Dyspepsia Stop: 07/19/25 17:56 Albuterol (Albuterol Hfa 8 Gm Inhaler) 2 puffs INH Q4H PRN PRN Reason: Shortness of Breath Stop: 07/19/25 17:56 Aspirin (Aspirin 81 Mg Ectab) 81 mg PO BID ORIANA Stop: 07/20/25 09:29 Last Admin: 06/23/25 08:18 Dose: 81 mg Atorvastatin Calcium (Atorvastatin 20 Mg Tab) 20 mg PO DAILY ORIANA Stop: 07/22/25 08:59 Last Admin: 06/23/25 08:17 Dose: 20 mg Diphenhydramine HCl (Diphenhydramine Hcl 25 Mg/10 Ml Udc) 12.5 mg PO Q6H PRN PRN Reason: Allergic Symptoms Stop: 07/21/25 16:53 Last Admin: 06/21/25 17:09 Dose: 12.5 mg Ergocalciferol (Ergocalciferol 1250 Mcg (50,000 Units) Cap) 1,250 mcg PO Q7D@0900 [facility] Stop: 07/26/25 09:01 Last Admin: 06/21/25 09:18 Dose: 1,250 mcg Sodium Chloride (Nss) 1,000 mls @ 80 mls/hr IV .[id number] [facility] Stop: 06/23/25 10:14 Last Admin: 06/22/25 22:36 Dose: 80 mls/hr Lorazepam (Lorazepam 0.5 Mg Tab) 0.5 mg PO Q8H PRN PRN Reason: Anxiety/discomfort Stop: 07/19/25 18:32 Last Admin: 06/19/25 18:37 Dose: 0.5 mg Losartan Potassium (Losartan Potassium 25 Mg Tab) 25 mg PO QAM [facility] Stop: 07/22/25 08:59 Last Admin: 06/22/25 07:30 Dose: 25 mg Melatonin (Melatonin 3 Mg Tab) 3 mg PO HS PRN PRN Reason: Insomnia Stop: 07/19/25 17:56 Ondansetron HCl (Ondansetron Inj 2 Mg/Ml 2 Ml Vial) 4 mg IV Q6H PRN PRN Reason: Nausea Stop: 07/19/25 17:56 Last Admin: 06/19/25 19:26 Dose: 4 mg Oxycodone HCl (Oxycodone Hcl Ir 5 Mg Tab (Immediate Release)) 5 mg PO Q3H PRN PRN Reason: Moderate Pain (Scale 4, 5, 6) Stop: 07/03/25 17:56 Last Admin: 06/19/25 21:07 Dose: 5 mg Oxycodone HCl (Oxycodone Hcl Ir 5 Mg Tab (Immediate Release)) 10 mg PO Q3H PRN PRN Reason: Severe Pain (Scale 7, 8, 9,10) Stop: 07/06/25 13:41 Last Admin: 06/23/25 06:23 Dose: 10 mg Pantoprazole Sodium (Pantoprazole 40 Mg Tab) 40 mg PO DAILY [facility] Stop: 07/22/25 08:59 Last Admin: 06/23/25 08:17 Dose: 40 mg Polyethylene Glycol (Polyethylene (Miralax) 17 Gm Pack) 17 gm PO DAILY PRN PRN Reason: Constipation Stop: 07/19/25 17:56 Last Admin: 06/21/25 16:56 Dose: 17 gm Polyethylene Glycol (Polyethylene (Miralax) 17 Gm Pack) 17 gm PO Q6 [facility] Stop: 07/22/25 11:59 Last Admin: 06/23/25 06:23 Dose: 17 gm
[2025-06-23] MEDS ORDERED: ACETAMINOPHEN 500 MG TAB PO PRN (12:14)
[2025-06-23 15:12] VITALS: PULSE 87; RESP 14; TEMP 98.4
--- NOTE | 2025-06-23 15:26 | Discharge Summary ---
Discharge Summary Date of Service June 23, 2025 Principal Dx & Hospital Course #1 = Principal Diagnosis (1) Fracture, intertrochanteric, left femur: (2) Fall from standing: (3) Leukocytosis: (4) Acute blood loss anemia: (5) IMELDA (acute kidney injury): (6) Hypertension: (7) Hyperlipidemia: (8) Vitamin D deficiency: Plan Patient is a 70y/o F with PMHx significant for asthma, allergic rhinitis, venous insufficiency, HTN, nocturnal leg cramps, obesity, adjustment disorder with anxious mood, HLD and h/o renal stones who presented to the ED on 06/19/25 with c/o L hip pain s/p mechanical fall and was found to have an intertrochanteric fracture of the L femur. Acute angulated comminuted intertrochanteric fracture of the L femur s/p mechanical fall POD#3 L femur intramedullary nailing performed by Dr. Kaplan on 06/20/25 WBAT as per ortho ASA 81mg BID for DVT prophylaxis as per ortho Patient was drowsy on 10mg oxycodone-> decreased dose to 5mg only DC to [facility] Follow up with Ortho in 2 weeks outpatient Acute blood loss anemia Hgb stable around 9 Asymptomatic IMELDA-> resolved Creat 2.03-> 1.16 today Resolved with IVF Hypertension Home losartan on hold due to soft BPs Leukocytosis POA-> resolved Likely reactive CXR negative and no s/s of infection Vitamin D deficiency Vit D 11.2 Start ergocalciferol x6 weeks Follow up outpatient Hyperlipidemia Continue statin Patient seen in collaboration with Dr. Hull. Please see addendum. Notes For Next Care Provider 70 year old female with significant PMH who was admitted at [facility] from 06/19- 06/23/2025 with a left hip fracture s/p IM nailing. Relatively unremarkable post op course. BP medication on hold due to softer BPs. PT/OT recommended rehab and discharged to [facility]. Ortho follow up outpatient in 2 weeks Medication Changes From Visit Baby aspirin 81mg bid for DVT proph Ergocalciferol weekly Hold losartan Admission HPI Per Admitting Provider Patient is a 70-year-old female overall in good state of health this morning was attempting to open the blinds. The aicha that adjust the blinds broke and she lost her balance and fell to the floor. She had immediate pain in her left hip and was unable to stand. She was able to call her son using Renee. He came to the house and called 911. In the emergency room imaging was consistent with a left intertrochanteric fracture of the femur. Other laboratory studies were remarkable for a elevated WBCs most likely inflammatory. The case was reviewed with orthopedics by ED provider who felt that this fracture could be managed here. She was referred to our service for hospital management. Time of my evaluation patient's pain is managed. She denies any fever or chills. No cough or cold symptoms. No chest pain, no shortness of breath, no nausea vomiting. Has been eating and drinking normally. Bowels and bladder have been functioning normally. States that overall she has been in a good state of health and was feeling well. It was pure accident and malfunction of the blinds that caused her to fall. Admission Exam Per Admitting Provider Constitutional: Alert, nontoxic HEENT: Mucous membranes moist. Sclera clear Neck: Soft, no adenopathy Lungs: Clear to auscultation, decreased, no wheezes rales or rhonchi CV: S1-S2, regular Abdomen: Soft, nontender, nondistended Extremities: No significant edema, left lower extremity shortened, externally rotated, pain with any type of movement Musculoskeletal: No other swollen joints other than mentioned above Neuro: No focal deficits, sensation intact Psych: Cooperative, normal mood Discharge Exam General/Psych: WD/WN, sitting up in bed, NAD, conversing easily Head: normocephalic, atraumatic Eyes: normal inspection, PERRL, conjunctivae pink Neck: normal visual inspection, trachea midline Respiratory: normal respiratory effort, lungs clear to auscultation, no wheeze/rales/rhonchi, no accessory muscle use Cardiovascular: regular rate and rhythm, no murmur/rub/gallop Extremities: no cyanosis or clubbing, normal peripheral pulses, no BLE edema, sensation intact BLE Abdomen/GI: normal bowel sounds, soft, nontender Neurologic/MSK: A+Ox3, motor strength 5/5, moves all extremities Skin: no rashes, normal color, warm and dry, left hip dressing c/d/i Updated Medication List Medication Instructions Recorded Confirmed Type albuterol sulfate 90 mcg/actuation 2 puff inhalation Q4H PRN sob 05/03/20 06/19/25 History aerosol inhaler mometasone 0.1 % topical ointment 1 applic topical DAILY PRN 07/19/23 06/19/25 Rx dermatitis #45 grams omeprazole 20 mg capsule,delayed 20 mg PO DAILY #90 caps 07/15/24 06/19/25 Rx release atorvastatin 20 mg tablet 20 mg PO DAILY #90 tabs 12/24/24 06/19/25 Rx furosemide 20 mg tablet 20 mg PO DAILY PRN edema #30 tabs 12/24/24 06/19/25 Rx losartan 25 mg tablet 25 mg PO QAM #90 tabs 12/31/24 06/19/25 Rx acetaminophen 500 mg tablet 1,000 mg (2 x 500 mg) PO Q8H PRN 06/23/25 Rx (Tylenol Extra Strength) pain #1 tab aspirin 81 mg tablet,delayed 81 mg PO BID #1 tab 06/23/25 Rx release ergocalciferol (vitamin D2) 1,250 1,250 mcg PO Q7D@0900 #7 caps 06/23/25 Rx mcg (50,000 unit) capsule oxycodone 5 mg tablet 5 mg PO Q4 PRN pain #1 tab 06/23/25 Rx Hospital Stay Data Consultations 06/19/25 16:44 ED Decision to Admit Stat 06/19/25 16:49 Consult Orthopedic Surgery Stat Procedures Performed Operation Date: 06/20/25 07:00 Actual Procedures p Left Femur IntraMedullary Nailing(Left) - Matthew Kaplan MD Diagnostic Imagining Performed Hip/Pelvis X-Ray 06/19/25 13:39 EXAM: Radiographs of the Left Hip 3 Views INDICATION: Fall TECHNIQUE: AP view of the pelvis and AP and crosstable lateral views of the left hip obtained. COMPARISON: No relevant prior studies available. FINDINGS: Limitations: None. Bones/joints: There is a comminuted intertrochanteric fracture of the left femur with about 45 degrees angulation. No dislocation. Soft tissues: No abnormality noted. No radiopaque foreign body noted. IMPRESSION: Angulated comminuted intertrochanteric fracture of the left femur. ACT 112: N/A Electronically signed by Negrita Avendano 06-19-2025 3:20 PM Chest X-Ray 06/19/25 13:41 EXAM: Radiograph of the Chest 1 View INDICATION: Fall. TECHNIQUE: Frontal view of the chest. COMPARISON: 02/02/2021 FINDINGS: Lungs and pleural spaces: No consolidation or pulmonary edema. No pleural effusion or pneumothorax. Heart: Stable enlarged cardiac shadow. Mediastinum: Normal contour. Bones/joints: No fracture, erosion or dislocation. Soft tissues: No abnormality noted. No radiopaque foreign body noted. Upper abdomen: No abnormality noted. IMPRESSION: No acute cardiopulmonary disease. ACT 112: N/A Electronically signed by Negrita Avendano 06-19-2025 3:18 PM Femur X-Ray 06/20/25 06:50 FL femur LT 2V CLINICAL HISTORY: LEFT TROCHNAIL COMPARISON STUDY: 06/19/2025 FLUOROSCOPY TIME: 1 minute 15 seconds FLUOROSCOPY IMAGES: 4 EXPOSURE DOSE: 24 mGy FINDINGS: Fluoroscopy was provided for left femoral gamma nail. IMPRESSION: Intraoperative fluoroscopy. ACT 112: Negative or not required by law. Electronically signed by: Deo Macias M.D. 06/20/2025 3:06 PM Discharge Instructions Given to Patient (Per Discharging Provider) You presented to the hospital with left hip pain after a fall and were found to have a left femur fracture. You had surgery on 06/20/2025 and have been doing well post operatively. You will need to take baby aspirin twice daily for prevention of blood clots. Please continue pain medicine as needed. You are jose ng discharged to [facility] for continued rehabilitation prior to returning home. Your vitamin D levels were found to be low and you should take supplementation once a week for at least 6 weeks and then have your levels rechecked. We held your losartan because your blood pressures have been on the lower side. We recommend continuing to hold this medication until your blood pressure improves. MEDICATION CHANGES: Tylenol and oxycodone as needed for pain Baby aspirin 81mg by mouth twice daily Ergocalciferol 1,250mcg weekly for 6 weeks Hold losartan due to low blood pressures SUMMARY OF TEST RESULTS: Chest x-ray normal Hip x-ray showed fracture of left femur PENDING TEST RESULTS: None RECOMMENDATIONS FOR FOLLOW-UP: Please follow up with Orthopedics in two weeks OTHER INSTRUCTIONS: Seek medical attention if you have: * temperature above 101 * chest pain or trouble breathing * abdominal pain, nausea, vomiting * diarrhea, dark stools or bloody stools * any unanswered questions or concerns Call 911 if symptoms are severe. It has been a pleasure taking care of you. Please take care of yourself. If you have any questions regarding your recent hospitalization please contact [facility] and request Chandrakant Dolan @ [phone]. Total Time Total Time Spent Total Time Spent (In Minutes): I spent a total of 35 minutes coordinating, documenting and providing care for this patient excluding time spent in the performance of separately billed services or time spent by another provider/QHP. Supervising Physician Co-Signing Physician Notes Patient is seen and examined at bedside on day of discharge. Discussed with patient's son at bedside. Left hip pain is controlled. Renal function back to baseline today. Denies any chest pain, dyspnea, dizziness. On exam patient is obese, no apparent distress, normocephalic atraumatic, EOMI, normal breath sounds, clear to auscultation, S1-S2, no murmur, abdomen soft, nontender, left hip surgical site in dressing, no pedal edema, unable to perform complete neurological exam. Patient is currently being managed for left femur fracture s/p left femur intramedullary nailing by Dr. Kaplan. Postoperative acute blood loss anemia. No indication for blood transfusion currently. Renal function back to baseline with IV fluids. Blood pressure relatively low. Continue to monitor blood pressure closely. Agree with vitamin D supplements for vitamin D deficiency. Continue PT OT. Plan to discharge to rehab facility today. I personally interviewed and examined the patient at bedside. I have reviewed the advanced practitioner's documentation on the date of service referred in note and agree with plan. Patient's care is coordinated with Kell JOE. Please refer to the documentation above for details of patient's presentation and for discussion of other issues. I spent a total [id number] coordinating, documenting, and providing care for this patient excluding time spent in the performance of separately billed services or time spent by another provider/QHP.
[2025-06-23 15:46] VITALS: BP 105/67
== END 2025-06-23 17:34 | DRG 481 ==
LOC: ED 13:30 → SUATTDRO 16:49 → 3E 16:49